=== PATIENT | female | born 1930 | race Caucasian/White ===

== ENCOUNTER 2017-03-02 00:36 | Inpatient (IN) | payer MEDICARE ==
[~2017-03-02] VITALS: Ht 157.5 cm; Wt 78.3 kg
[~2017-03-02 00:36] MED LIST: ALLOPURINOL100 MG PO; ASPIRIN325 MG PO; CLARITIN10 MG PO; DAILY MULTIPLE1 EACH PO; DOCUSATE SODIU100 MG PO; FAMOTIDINE20 MG PO; GABAPENTIN600 MG PO; GLIPIZIDE10 MG PO; GLUCOPHAGE1000 MG PO; HAIR, SKIN & N1 EAC2 PO; LISINOPRIL30 MG PO; MEDROL4 MG PO; METHOCARBAMOL750 MG PO; METOPROLOL TART50 MG PO; MIRAPEX0.125 MG PO; NORCO 10-325 T1 EACH PO; SIMVASTATIN20 MG PO; SUPER CALCIUM600 MG PO; TIMOPTIC 0.5%1 EACH OU; VITAMIN D32000 UNI1 PO
[2017-03-02] MEDS ORDERED: ASPIRIN325 MG PO (01:02)
[2017-03-02] MEDS ORDERED: AMOXICILLIN500 MG PO (05:14)
[2017-03-02] MEDS ORDERED: ZITHROMAX250 MG PO (06:28)
--- NOTE | 2017-03-02 06:39 | NUR ---
FLUIDS DISCONTINUED PER DR LAU
--- NOTE | 2017-03-02 07:53 | NUR ---
RECIEVED REPORT FROM RUDY NICHOLSON. PT AWAKE AND ASSISTED TO RESTROOM. PT ABLE TO AMBULATE WITH FWW AND SBA. MG INFUSING. IVF DC'D BUT STILL HANGING FOR FLUSHING OF LINE. PT HR INCREASED TO 130'S WHILE UP. DENIES FURTHER CONCERNS.
--- NOTE | 2017-03-02 09:45 | NUR ---
PT REPORTED NAUSEA AND THEN THREW UP. THINKS IT IS FROM TAKING ASPRIN ON EMPTY STOMACH. GAVE HER CRACKERS AND CALLED DR LAU FOR ZOFRAN ORDER. PT STATED SHE WILL TRY THE CRACKERS BEFORE TAKING THE MED.
--- NOTE | 2017-03-02 10:23 | NUR ---
PT STILL NAUSEOUS AFTER TRYING TO EAT BREAKFAST. ADMINISTERED ZOFRAN IV. IN ROOM NOW. REMOVED FOOD TRAY. WILL CHECK ON HER AGAIN SHORTLY.
--- NOTE | 2017-03-02 10:33 | NUR ---
PT IS SITTING UP ON THE SIDE OF BED WITH CALL LIGHT IN REACH. PT IS VERY NAUSEOUS AND WAS GIVEN AN EMESIS BAG. PT THREW UP ALL THE BREAKFAST SHE ATE. NURSE AWARE. PT DID NOT NEED ANYHITNG ELSE AT THE MOMENT
--- NOTE | 2017-03-02 12:18 | NUR ---
PT LAYING BED TRYING TO RELIEVE NAUSEA AND GET SOME REST BEFORE LUNCH. BT ARE ACTIVE AND ABDOMIN IS SOFT.
--- NOTE | 2017-03-02 14:36 | NUR ---
PT IN BED TALKING WITH FAMILY. STATES SHE IS STILL NAUSEOUS AND DOESN'T THINK SHE COULD KEEP PILLS DOWN RIGHT NOW. ADMINISTERED ZOFRAN AND IV LASIX. TALKED TO DR LAU REGARDING INABILITY TO SWALLOW PILLS. WILL ORDER PHENEGREN.
--- NOTE | 2017-03-02 16:45 | NUR ---
PT CONTINUES TO THROW UP EVEN AFTER ZOFRAN, PHENEGREN AND IV MEDICATIONS ALL DAY. WILL MOVE TO UNIT FOR IV CARDIZEM DRIP SHE IS UNABLE TO KEEP ANYTHING DOWN. PT CONCURS. GIVEN GI COCKTAIL.
--- NOTE | 2017-03-02 17:23 | NUR ---
CARDIZEM DRIP STARTED AT 5MG/HR AT THIS TIME, HEART RATE IRREGULAR AT THIS TIME, VARIES FROM THE 88 TO 100'S TO ONE TEEN'S.
--- NOTE | 2017-03-02 17:32 | NUR ---
RECEIVED PT FROM THE M/S UNIT DUE TO S-FIB INCREASED HEAART RATE AND N/V/D THIS AFTERNOON. PT DOES NOT UNDERSTAND THE IMPORTANCE OF STANING IN BED AND LETTING STAFF GIVE HER MEDICATIONS TO GET HER HEART RATE DOWN. ALL SHE WAS DOING WAS YELLING AT HER TO GO TO THE OTHER ROOM AND BRING HER WIPES THAT SHE USES WHEN SHE GOES TO THE BATHROOM. PT APPEARS TO BE VERY UNCOMFORTABLE AT THIS TIME, DOES FEEL A LITTLE BETTER WITH THE IV PUSH OF CARDIZEM 10MG. BUT HEART RATE STILL VERY IRREGULARE ANYWEAR FROM 88 TO 113.
--- NOTE | 2017-03-02 18:11 | NUR ---
PT CONTIOUES TO C/O ABD PAIN, AND REQUESTED HER MEDICATION FOR RESTLESS LEG, SO MEDICATION WAS GIVEN WITH SIPS OF WATER. PT DOES NOT WANT TO EAT DINNER AT THIS TIME, IN GERERAL SHE APPEARS UNCOMFORTABLE. ROLLS FROM SIDE TO SIDE, BUT IS ABLE TO MOVED HERSELF ABOUT IN THE BED. HEART RATE REMAINS IRREGULAR AT THIS TIME AND CARDIZEM DRIP REMAINS AT 5MG/HR.
--- NOTE | 2017-03-02 18:26 | NUR ---
TALKED WITH DR LAU AND IT IS OKAY TO GIVE INSULIN DOSE AT THIS TIME. ASLO TO INCREASE CARDIZEM DRIP TO 10MG/HR.
--- NOTE | 2017-03-02 18:35 | NUR ---
PT PLACED ON BED TRISTAN AT THIS TIME.
--- NOTE | 2017-03-02 18:37 | NUR ---
IT WAS NOTED THAT UNDER PT ABD FOLD IT IS TO HAVE A RASH/ODOR/WET/MOIST. WHEN ASKING PT ABOUT THIS SHE SAID AT TIMES "I USE A POWER ON IT". PT PLCED ON BED TRISTAN.
--- NOTE | 2017-03-02 18:51 | NUR ---
PT UNABLE TO VOID ON BEDPAN, UP TO BEDSIDE COMMODE THEN STARTED TO VOMET HAD 200MLS OF WHITE IN COLOR. BUT WAS ABLE TO VOID
--- NOTE | 2017-03-02 21:03 | EKG ---
[facility] [address] [place] [address] Signed Atrial fibrillation with rapid ventricular response Nonspecific ST abnormality Abnormal ECG When compared with ECG of 30-OCT-2016 15:32, T wave inversion more evident in Inferior leads Confirmed by NIKKI LAU MD ([id number]) on 03/02/2017 9:03:29 PM Electronically Signed By: NIKKI LAU MD 03/02/17 2103 PATIENT NAME: JACK PATEL Electrocardiogram DATE OF : [birth year] PHYSICIAN: NIKKI LAU MD REPORT #: [id number] REPORT IS CONFIDENTIAL AND NOT TO BE RELEASED WITHOUT AUTHORIZATION
--- NOTE | 2017-03-02 21:25 | NUR ---
HS MEDS GIVEN/ PT DENIES NAUSEA BUT EXPRESSES HOPE THAT SHE WILL KEEP THEM DOWN. PANNIS AREA IS PINK, CLEANSED AND NYSTATIN APPLIED.
--- NOTE | 2017-03-02 23:28 | NUR ---
HAS BEEN SLEEPING. HR HAS BEEN GRADUALLY INC TO 115-120. RR 28-34. T99.8. UP TO BSC TO VOID, IS WEAK AND DID FEE A LITTLE DIZZY WHITH GETTING UP HR TO 130 WITH EXERTION, NO SOB. PT DENIES SOB EVEN WITH TACHYPNEA.AFFIRMS JUST DOESN'T FEEL WELL. CARDIZEM INC TO 15MG/HR.
--- NOTE | 2017-03-02 23:35 | NUR ---
PT GIVEN 500MG TYLENOL PO FOR TEMP. PT HAD RUNNY NOSE WHILE UP, MUCOUS CLEAR.
--- NOTE | 2017-03-03 01:30 | NUR ---
AWAKE BRIEFLY . TURNS FREQ. NO CHANGE
--- NOTE | 2017-03-03 05:19 | NUR ---
AWAKENED FOR VS. STATE IS SORE ALL OVER. GIVEN ZOFRAN 4MG IV TO PREVENT NAUSEA THEN GIVEN 1 NORCO PO WITH JELLO.
--- NOTE | 2017-03-03 05:32 | NUR ---
PT HAD EMESIS AFTER PART OF JELLO, DID NOT SEE NORCO, EMESIS IS CLEAR AND WITH MUCOUS.
--- NOTE | 2017-03-03 06:18 | NUR ---
PT NOT REALLY FEELING BETTER. CAN FEEL HEART BEATING. HR LOW 100'S.
--- NOTE | 2017-03-03 09:03 | NUR ---
PT LABS RESULTS BACK DR LAU NOTIFIED AND BLOOD CULTURES OBTAINED AND LACTIC ACID OBTAINED AT 0950. NEW IV SITE PLACED AFTER 5 TRIES. LAB PRESENT ALSO AT THIS TIME. DR LAU EXAMINED PT ALSO AT THIS TIME. NEW ORDERS RECEIVED.
--- NOTE | 2017-03-03 10:00 | NUR ---
CARDIZEM DRIP DECREASED TO 10MG/HR AT THIS TIME, DUE TO HEART RATE IN THE 70'S. PT APPEARS TO BE RESTING COMFORTABLE AND IS AT THE BEDSIDE.
--- NOTE | 2017-03-03 10:02 | NUR ---
PT TALKING ON PHONE WITH FAMILY AND PT JUST CAME IN THIS AM.
--- NOTE | 2017-03-03 11:00 | NUR ---
CARDIZEM DRIP DECREASED TO 5MG HOUR AT THIS TIME JEART RATE REMAINS IN THE 70'S TO 80'S AT TIMES.
--- NOTE | 2017-03-03 11:27 | NUR ---
PT TO CT AT THIS TIME VIA BED. NO CONTRAST GIVEN DUE TO PT UNABLE TO KEEP LIDUIRS OR FOOD DOWN THIS AM.
--- NOTE | 2017-03-03 11:55 | NUR ---
PT RETURNED FROM CT VIA BED AT THIS TIME. CALL LIGHT WITHIN REACH BED IN LOW POSITION AND SIDE RAILS UP X 4
--- NOTE | 2017-03-03 12:45 | NUR ---
PT IS GOING TO TRY TO SIP ON SOME COLD SUGAR FREE TEA AT THIS TIME, PT HAS BEEN SLEEPING SINCE SHE RETURNED FROM CT. RAISED THE HEAD OF HER BED TO TAKE PO AT THIS TIME. REMAINS AT THE BEDSIDE AT THIS TIME.
--- NOTE | 2017-03-03 13:26 | NUR ---
DR LAU CALLED AND REPORTED THAT THE CT IS NEGATIVE SO THEREFORE HE ORDER US OF PT GALLBLADDER ATT HIS TIME. CT CALLED IN AT THIS TIME.
--- NOTE | 2017-03-03 13:30 | NUR ---
UP TO BR TO ATTEMPT BM. WITH AMBULATION OXYGEN SOURCE IS NRBM AT 15 L. PATIENT UNBLE TO HAVE BM. DID VOID TO URINAL 320 ML. UPON RETURN TO BED PATIENT IS VERY SHORT OF BREATH. SAT IS 79%.
--- NOTE | 2017-03-03 13:47 | NUR ---
CARDIZEM DRIP REMAINS AT 5MG/HR AND HEART RATE REMAIN IN THE 80'S TO 90'S AT THIS TIME. PT CONTIOUES TO SLEEP EVEN WHEN STAFF IS TALKING WITH HER . HOB ELEVATED IV FLUIDS CONTIOUE TO INFUSE AT THIS TIME.
--- NOTE | 2017-03-03 13:52 | NUR ---
US TECH HER AT THIS TIME.
--- NOTE | 2017-03-03 15:25 | NUR ---
US SENT TO LAB AT THIS TIME. OBTAINED VIA MINI CATH. IT APPEARED TO YELLOW IN COLOR AND CLEAR IN APPEARANCE.
--- NOTE | 2017-03-03 16:17 | NUR ---
WOKE PT UP AFTER TALKING WITH DR LAU. DR LAU WOULD LIKE TO FLUID CHANGE PT WITH PO INTAKE AT THIS TIME AND THEN TRY TO GET PO POTASSIUM TAKEN. BLADDER SCAN PT FOR 341MLS AT THIS TIME AND PT DENIES NEED TO VOID AT THIS TIME. GAVE PT CHICKEN BROTH AND HOT TEA AT THIS TIME.
--- NOTE | 2017-03-03 16:57 | NUR ---
PT SO FAR BEEN ABLE TO PO LIQUIDS DOWN. PT UP TO BEDSIDE COMMODE VOIDED 300MLS DARK PHIL IN COLOR URINE. PT BACK TO BED. AT TIMES SHE WOULD KEEP HER EYES CLOSED AND WAS NOT LISTENING TO STAFF ABOUT MANGING HER TUBES AND CORDS. DR LAU IN THE PTS ROOM ALSO AT THIS TIME.
--- NOTE | 2017-03-03 17:07 | NUR ---
INCREASED CARDIZEM DRIP TO 12.5MG/HR AT THIS TIME. DR LAU REMAINS IN UNIT AND CURRENTLY WRITTING NEW ORDERS FOR PT.
--- NOTE | 2017-03-03 17:44 | NUR ---
PT GIVEN 5MG REGLAN BEFORE MEDS AND TONIGHTS MEAL AT THIS TIME. STARTED 500ML LR BOLUS ALSO AT THIS TIME. PT CONTIOUES TO BE IN BED WITH EYES CLOSED. NOT VERY FORTH COMING WITH HOW SHE IS FEEL THIS AFTERNOON. DINNER ORDER FOR PT.
--- NOTE | 2017-03-03 18:45 | NUR ---
PT ATE SOME OF HER DINNER TONIGHT WITHOUT HAVEING ANY N/V. SHE DID NOT LIKE HER TEA TONIGHT "TOO STRONG". LR BOLUS COMPLETED AND THEN LR AT 75MLS/HR STARTED AT THIS TIME.
--- NOTE | 2017-03-03 20:54 | NUR ---
HAS BEEN SLEEPING. AWAKENED FOR ASSESSMENT AND VS. DENIES NAUSEA OR ABD PAIN. STILL FEELS VERY TIRED. AFEBRILE AT THIS TIME.
--- NOTE | 2017-03-03 23:25 | NUR ---
PT SHAKING SIDE RAIL, AFFIRMED NEEDED TO VOID. AT FIRST PT WAS DIFFICULT TO UNDERSTAND, SPEECH CLEARER THE LONGER SHE WAS AWAKE. TRIED TO GET PT TO BSC BUT UNABLE TO EVEN SIT UP AT BEDSIDE. ON BED TRISTAN, UNABLE TO VOID. NOW ASSISTED TO BSC AND VOIDED 100ML CONCENTRATED URINE. BACK TO BED. STILL HAS DIFFICULTY COORDINATING MOVEMENT. BLADDER SCANNED FOR 741ML. DR LAU CALLED AND ORDER FOR REAL CATH RECIEVED.
--- NOTE | 2017-03-04 00:22 | NUR ---
LAB IN TO DRAW BLOOD CULTURES
--- NOTE | 2017-03-04 01:38 | NUR ---
PT'S BLOOD PRESSURE NOTED TO BE 81/42, 77/47, AND 80/42. PT AWAKE AND CONVERSIVE STILL. PATIENT'S CARDIZEM GTT INFUSING AT 7.5 MG/HR AT THIS TIME AND TURNED DOWN TO 2.5 MG/HR. PT HELPED TO BECOME MORE COMFORTABLE IN THE BED. CONTINUE TO MONITOR CLOSELY.
--- NOTE | 2017-03-04 01:43 | NUR ---
LE 0112 CARDIZEM GTT DECREASED TO 7.5MG/HR. IS MORE AWAKE THAN EARLIER.
--- NOTE | 2017-03-04 01:58 | NUR ---
OFF CARDIZEM. U/O 5ML THIS HR, DR LAU AWARE. BOLUS 250ML LR STARTED. PT IS ALERT AND WATCHING TV.
--- NOTE | 2017-03-04 03:27 | NUR ---
DR JUDI SHETTY RE URINE OUTPUT AND PT CONDITION. WILL CONT TO WATCH.
--- NOTE | 2017-03-04 04:27 | NUR ---
AWAKENED FOR VS, IS MORE ALERT AND INTERACTIVE THAN EARLIER. CONT TO HAVE POOR URINE OUTPUT.
--- NOTE | 2017-03-04 06:26 | NUR ---
SLEEPING SOUNDLY AT THIS TIME. URINE OUTPUT SL BETTER.
--- NOTE | 2017-03-04 10:15 | NUR ---
PT ATE FAIR THIS AM, THEN WENT BACK TO SLEEP. PT GIVEN COMPLETE BED BATH AND LINE CHANGE THIS AM. PT THEN AMBULATED TO THE CHAIR WITH HER WALKER, SHE DOES NOT FOLLOW STAFF DIRECTIONS WELL, BUT IS COOPERATIVE WITH HOSPITAL ROUTINE.
--- NOTE | 2017-03-04 11:12 | NUR ---
CALL LIGHT ON PATIENT WOULD LIKE TO GO BACK TO BED. PATIENT BACK TO BED WITH NO C/O OR FURTHER NEEDS AT THIS TIME. RN AWARE
--- NOTE | 2017-03-04 12:44 | NUR ---
ORDER PT LUNCH AT THIS TIME, PT ALSO WAS GIVEN PO CARDIZEM AT 11:30 TO HELP CONTROL HEART RATE.HEART RATE REMAINS IN TO 100'S TO TEENS, BP SOFT AT THIS TIME. SITTING UP IN BED AT THIS TIME. IS AT BEDSIDE.
--- NOTE | 2017-03-04 13:28 | NUR ---
PT FAMILY AT THE BED TALKING WITH PT WHILE SHE TRIES TO EAT HER LUNCH. REMAINS OFF THE CARDIZEM DRIP. PT REMAINS IN A-FIB
--- NOTE | 2017-03-04 13:31 | NUR ---
PT WAS RESTING, HER WAS ON COUCH READING THE BIBLE. SHE WELCOMED ME IN. SHE SAID SHE WAS FEELING BETTER, BUT DID SO WITH VERY CALM VOICE, AND THEN WOULD DROP OFF. SHE MENTIONED THAT HER FREIGHT LOADING SUPERVISOR HAD CALLED. I AM TO KEEP HIM UPDATED FOR HER. HAD PRAYER, WILL CONTINUE TO FOLLOW NEEDED
--- NOTE | 2017-03-04 14:41 | NUR ---
PT APPEARS TO BE CONFUSED THIS AFTERNOON, IS FOLLOWING SOME DIRECTIONS, NEURO CHECK COMPLETED LEVERMAN GOOD AND EQUAL, STRENGHT EQUAL, ABLE TO FOLLOW DIRECTIONS.
--- NOTE | 2017-03-04 15:26 | NUR ---
UA SENT AT THIS TIME, 55MLS OF PHIL IN COLOR URINE SENT AT THIS TIME. THEN AN ADDITIONAL 15MLS OF URINE IN THE CATHETER BAG
--- NOTE | 2017-03-04 16:29 | NUR ---
pt having increased confuseion, temp up medicated with tylenol 500mg po at this time, warm cup of tea given at this time also. family remain at bedside.
--- NOTE | 2017-03-04 18:12 | NUR ---
FLU SWAB OBTAIN, FEVER IS DOWN AND PT IS SITTING UP IN THE CHAIR WATCHING TV WITH FAMILY AND IS NOT CONFUSED AT THIS TIME.
--- NOTE | 2017-03-04 20:12 | NUR ---
PATIENT LYING IN BED UPON INITIAL ASSESSMENT AND IS ALERT, ORIENTED AND PLEASANT. TEMP AT THIS TIME IS 98.3. PT STATES SHE HAS PNEUMONIA. PT WATCHING TV. ASSESSMENT COMPLETE. MONITORING URINE OUTPUT HOURLY. IVF CONTINUE AT 200 ML/HR AT THIS TIME. CONTINUE CHAVA ONITOR.
--- NOTE | 2017-03-04 21:48 | NUR ---
PATIENT SLEEPING AND APPEARS IN NAD. LAST BP 126/60. PT'S URINE OUTPUT HAS PICKED UP TONIGHT AND WE CONTINUE TO MONITOR IT HOURLY. HEART RATE ALSO BETTER CONTROLLED AND CURRENT HR IS 80s, AFIB.
--- NOTE | 2017-03-04 23:26 | NUR ---
PATIENT GIVEN 30 MG PO CARDIZEM AT THIS TIEM. HEART RATE HAS BEEN NOTED TO BE TRENDING BACK UP TO RANGE BETWEEN 100-110, AFIB. PT HAD A MELENA STOOL IN THE BED EARLIER WELL. [facility] POSTIVE FOR BLOOD. DR. LAU NOTIFIED AND ORDER REC'D TO HOLD HER ASPIRIN, AND TYPE AND CROSS HER FOR 2 UNITS OF PRBCs TO BE ON HOLD. CONTINUE TO MONITOR. URINE OUTPUT HAS REMAINED GOOD TONIGHT.
--- NOTE | 2017-03-05 03:58 | NUR ---
PATIENT'S HEART RATE NOTED TO BE INCREASING TO THE MID 120s AND SUSTAINING. PT CHECKED ON AND SHE STATES HER ABDOMEN IS HURTING HER AND SHE IS NOTED TO PASS FOUL SMELLING FLATULENCE. PT UP TO COMMODE AND HAS ANOTHER MELENA STOOL. PT ALSO HAD AN INCONTINENCE IN HER ATTENDS WHILE SHE WAS SLEEPING. CONTINUE TO MONITOR.
--- NOTE | 2017-03-05 08:10 | NUR ---
ASSESSMENT COMPLETED, PT C/O OF NAUSEA MEDICATED WITH ZOFRAN 4MG IV. PT STATES HAVING ABD DISCOMFORT "5/10" WITH PALPATION. URINE OUTPUT 60 MLS THIS HOUR. REAL CATH DRAINING CLEAR YELLOW URINE.
--- NOTE | 2017-03-05 09:19 | NUR ---
ATTENDS CHANGED X3, PT INCONT SMALL AMOUNTS OF DARK RED/BROWN LIQ STOOL. DR. LAU NOTIFIED OF NAUSEA/VOMITING LIGHT GREEN FLUID. NEW ORDERS RECEIVED. IVF NOW DECREASED TO 100 MLS/HR PER ORDER.
--- NOTE | 2017-03-05 10:09 | NUR ---
DR. LAU IN TO ASSESS PT.
--- NOTE | 2017-03-05 11:24 | NUR ---
Patient talking on phone with a friend who called to pray with her.
--- NOTE | 2017-03-05 12:22 | NUR ---
PT CONTINUES TO HAVE NAUSEA/VOMITING. MEDICATED WITH PHENERGAN 12.5 MG IV.
--- NOTE | 2017-03-05 13:58 | NUR ---
PT SITTING ON EDGE OF BED, ASKED "WHEN AM I GOING TO SURGERY?" PT STOOD AT BED SIDE WITH ONE PERSON ASSIST AND AMBULATED TO TOP OF BED. RETURNED TO BED WITH HOB ELEVATED, BED ALARM ON. PT RESTING, IN ROOM.
--- NOTE | 2017-03-05 17:38 | NUR ---
500 MLS BOLUS COMPLETED PER DR. LAU ORDER. PT RESTING ON LEFT SIDE, EYES CLOSED.
--- NOTE | 2017-03-05 18:07 | NUR ---
DR. QUEVEDO IN TO ASSESS PT AND TALK TO HER AND HER ABOUT PROCEDURE. LAB HERE FOR LAB DRAW.
--- NOTE | 2017-03-05 18:51 | NUR ---
TO ENDO ROOM VIA STRETCHER. JOVI CALLED PER PT REQUEST AND HE STATED HE WILL BE HERE TO SEE PT SOON.
--- NOTE | 2017-03-05 19:20 | NUR ---
03/05/171919 Ella Mcallister 190-PATIENT ARRIVED BACK TO ROOM 130 CCU PACU. 10L MASK O2 SAT 98% DILTIAZEM GTT AT 10MG/HR SR HR 90'S. PATIENT DROWSY AROUSES TO VERBAL STIMULI. PATIENT REPOSITIONED BACK TO BED. REAL CATHETER IN PLACE. AT BEDSIDE. 1917-DR. QUEVEDO AT BEDSIDE TALKING WITH PATIENT AND
--- NOTE | 2017-03-05 19:57 | NUR ---
REPORT RECIEVED FROM NAIL FEEDERRUDY COOLEY. PT AWAKE AND DENIES NAUSEA AND PAIN, IS SLEEPY, SIPS OF JUICE GIVEN. PT ALERT AND ORIENTED, SIDE RAILS UP, AT BEDSIDE.
--- NOTE | 2017-03-05 21:20 | NUR ---
IN TO DO ASSESSMENT AND HS MEDS, PT DENIES NAUSEA/PAIN/SOB. ATTENDS HAVE DARK STOOL, JESUS ALBERTO CARE DONE, NYSTATIN POWDER APPLIED.
--- NOTE | 2017-03-05 23:15 | NUR ---
ASSESSMENT DONE, PT ASSISTED WITH REPOSITIONING. NO C/O.
--- NOTE | 2017-03-06 02:55 | NUR ---
CARDIZEM DRIP TURNED DOWN TO 2.5MG/HR, HELPED TO REPOSTION AND LOPRESSOR GIVEN.
--- NOTE | 2017-03-06 06:23 | NUR ---
PT AWAKE IN BED, WATCHING TV. STATES SHE IS WANTING TO GO HOME SHE DOES NOT LIKE THE FOOD HERE. DENIES NAUSEA/SOB/PAIN. ASSISTED TO REPOSITION.
--- NOTE | 2017-03-06 08:42 | NUR ---
PT UP TO JANA CHAIR WITH STOCK SORTER, PT EATING CLEAR LIQ DIET. ASSESSMENT COMPLETED AND PT REMAINS IN JANA CHAIR. DR. QUEVEDO IN TO ASSESS PT.
--- NOTE | 2017-03-06 09:23 | NUR ---
DR. LAU IN TO ASSESS PT. DR. LAU TALKED WITH GRANDSON OF PT ALSO.
--- NOTE | 2017-03-06 11:28 | NUR ---
PT SLEEPING ON RIGHT SIDE - FAMILY IN ROOM.
--- NOTE | 2017-03-06 11:45 | NUR ---
PT RESTING IN BED, INCONT OF LIQ DARK BROWN STOOL - BED BATH GIVEN,. ADDIE GARCIA DC'D - PT DEMETRI WELL, PULL-UP UNDERGARMENT IN PLACE AND PT UP TO JANA CHAIR WITH ASSIST. ASSESSMENT COMPLETED, DENIES C/O AT THIS TIME. FAMILY BACK IN ROOM. PT STATES SHE WILL TRY TO EAT A LITTLE SOUP FOR LUNCH.
--- NOTE | 2017-03-06 12:44 | NUR ---
PT SLEEPING- AND GRANDSON JOANN PRESENT. VISITED WITH BOTH BRIEFLY. DIDNOT WANT TO WAKE PT. PT HAD SCOPE, DIDNOT REVEAL ANYTHING. THEY FEEL SHE IS IMPROVING. EXTENDED A BLESSING, WILL CONTINUE TO FOLLOW
--- NOTE | 2017-03-06 16:17 | NUR ---
ASSESSMENT COMPLETED, FAMILY IN ROOM, PT DRINKING MILKSHAKE THAT FAMILY BROUGHT FOR PT. NO C/O AT THIS TIME.
--- NOTE | 2017-03-06 18:08 | NUR ---
PT UP TO JANA FERGUSON, WATCHING TV. PM MEDS GIVEN, PT STATES SHE WILL TRY TO EAT SOME SOUP TONIGHT.
--- NOTE | 2017-03-06 19:30 | NUR ---
IN TO DO ORTHOSTATIC VITALS, PT ABLE TO TOLERATE STANDING FOR ONE MINUTE, BUT AT THREE MINUTE JESSICA PT STATES SHE CANT STAND ANY LONGER AND SITS BACK DOWN ON BED, SO NOT ABLE TO OBTAIN LAST STANDING BP. DR LAU AWARE, ORDER GIVEN FOR 500 ML BOLUS, STARTED. DR LAU ALSO INFORMED OF 100.6 ORAL TEMP, ORDER GIVEN FOR UA AND PCXR.
--- NOTE | 2017-03-06 20:00 | NUR ---
ASSESSMENT COMPLETED, PT DENIES PAIN, NAUSEA OR SOB ALTHOUGH RESP RATE IS A BIT HIGH. IS ON 1L/O2/NC AND SPO2 92%. LUNGS CLEAR AT THIS TIME. PT WAS INC GREENISH LIQUID STOOL, JESUS ALBERTO CARE DONE, NYSTATIN APPLIED AND STRAIGHT CATH DONE TO OBTAIN UA. PT DENIES URGE TO VOID AT THIS TIME. REPOSITIONED UP IN BED, DURING STRAIGHT CATH PROCEDURE, PTS DAUGHTER BRI COMES IN FROM [place] AND IS CONCERNED REGARDING PT'S CONDITION. QUESIONS ANSWERED, BRI IS PLANNING ON STAYING THE NIGHT. PT IS RESTING IN BED, RESP UNLABORED BUT RATE UP TO 32 AFTER ACTIVITY. RESTING HR 100'S, HS MEDS GIVEN.
--- NOTE | 2017-03-06 22:15 | NUR ---
PT STILL HAS NOT HAD URGE TO VOID, BLADDER SCAN DONE SHOWS 70ML. DR LAU CALLED AND UPDATED ON PT STATUS, WILL CONTINUE TO MONITOR URINE. PT HAS BEEN RESTING WITH EYES CLOSED, RESP EVEN AND UNLABORED BUT SHALLOW AND FAST WITH RR 30-34. O2 TURNED UP FROM 1L TO 2L SATURATIONS WERE 91%, NOW UP TO 95%.
--- NOTE | 2017-03-07 00:20 | NUR ---
PT CALLS OUT, WAS WONDERING IF HER DAUGHTER WAS IN THE ROOM. PT WAS FOUND WITH SOME GREEN EMESIS AROUND HER PILLOW. ASKED IF SHE VOMITTED SHE STATES "SORT OF". PT ASSISTED WITH CLEANING HER FACE AND MOUTH, STATES SHE IS A LITTLE NAUSEATED. 4MG IV ZOFRAN GIVEN. BLADDER SCAN DONE SHOWS 124ML. RESTING HR HAS INCREASED OVER THE LAST HOUR OR SO, NOW IS 120-130, WILL GIVE PO CARDIZEM SOON. RR STILL ELEVATED, 28-34. LUNGS WITH A FEW COARSE SOUNDS HEARD ON LEFT, OXYGEN IS AT 2L/NC WITH SPO2 95%. PT REPOSITIONED AND BED ALARM ON, SIDE RAILS UP. DAUGHTER IS SLEEPING IN ROOM.
--- NOTE | 2017-03-07 01:47 | NUR ---
PO CARDIZEM GIVEN, PT AWAKENS EASILY, STATES NAUSEA IS GONE. HR AND RESP RATE ARE DOWN AT THIS TIME, HR 109 AND RR 24 SPO2 99%.
--- NOTE | 2017-03-07 02:30 | NUR ---
PT FOUND WITH MORE FRESH GREEN LIQUID ON GOWN AND AROUND PILLOW, ASKED IF SHE THREW UP SHE STATES "I DON'T THINK SO" , DOES STATE SHE IS STILL NAUSEATED, ABDOMEN IS MORE DISTENDED AND TENDER. PT DOES NOT COMPLAIN OF PAIN BUT HAS AN UNCOMFORTABLE LOOK ON HER FACE. RR IS IN THE 30'S SHALLOW.WILL GIVE REGLAN.
--- NOTE | 2017-03-07 03:15 | NUR ---
BLADDER SCAN SHOWED 150ML IN BLADDER. DR LAU CALLED AND UPDATED REGARDING ABOMINAL DISTENTION, EMESIS, LOW URINE OUTPUT AND INCREASED RR. ORDERS GIVEN FOR ABD XR, LR BOLUS AND TO PLACE A CATHETER.
--- NOTE | 2017-03-07 04:30 | NUR ---
PT TO XR WITH XR TECH AND RN FOR ABDOMINAL XRAY. SOB AND WORN OUT WITH THE ACTIVITY OF STANDING FOR XRAY AND TRANSFERRING. BACK TO ROOM, REAL CATHETER PLACED WITH RETURN OF 350ML CLEAR DARK YELLOW URINE. PT ALSO INC SMALL LIQUID GREEN STOOL, JESUS ALBERTO CARE DONE, BARRIER CREAM APPLIED. PT IS NOT FEELING WELL, NAUSEATED, ABDOMINAL PAIN AND DISTENTION.
--- NOTE | 2017-03-07 05:17 | NUR ---
LAB IN TO DRAW BLOOD.
--- NOTE | 2017-03-07 05:17 | NUR ---
DAUGHTER BRI AWAKE NOW, PROCEDURES EXPLAINED TO HER AND QUESTIONS ANSWERED.
--- NOTE | 2017-03-07 05:30 | NUR ---
DR LAU CALLED AND UPDATED, NO ORDERS AT THIS TIME.
--- NOTE | 2017-03-07 06:17 | NUR ---
NGT PLACED, PLACEMENT CHECKED WITH CXR.
--- NOTE | 2017-03-07 08:00 | NUR ---
FAMILY AT THE BEDSIDE, PT IS AWAKE AND ALERT AT THIS TIME, NG IS DRAING GREEN IN COLOR DRAINAGE. APPEARS TO BE COMFORTABLE AT THIS TIME.
--- NOTE | 2017-03-07 09:00 | NUR ---
AM MEDS GIVEN IV, FAMILY REMAINS AT BEDSIDE
--- NOTE | 2017-03-07 10:45 | NUR ---
NG DRAINAGE INCREASED OUTPUT NEW CANISTER PLACED. DR QUEVEDO INTO SEE PT.
--- NOTE | 2017-03-07 11:49 | NUR ---
PER DR QUEVEDO NG TUBE RETAPED AT THIS TIME.
--- NOTE | 2017-03-07 11:56 | NUR ---
PT INTO SEE PT AT THIS TIME, PHYSICAL THERAPY WAS WORKING WITH PT.
--- NOTE | 2017-03-07 14:00 | NUR ---
I & O'S COMPLETED AND DR LAU UP DATED REGARDING I & O'S. PT TURNED TO LEFT SIDE AT THIS TIME, ONLY C/O PAIN WHEN ON HER BACK "I HAVE METAL IN MY BACK" PT REMAINS NPO AT THIS TIME, AND APPEARS TO BE COMFORTABLE WHEN ONHER SIDE.
--- NOTE | 2017-03-07 14:06 | NUR ---
PT ASLEEP. RUDY HADLEY REQUESTED I NOT WAKE HER. PT HAS HAD LOTS OF COMPANY. DEALING WITH NG TUBE ASSISTING WITH BOWEL OBSTRUCTION. FAMILY REQUESTED TO LEAVE, AND LET PT REST. I WILL CONTINUE TO FOLLOW, GOD BLESS
--- NOTE | 2017-03-07 15:05 | NUR ---
pt is in the room at this time, explained what was happening and how pt progress is going.
--- NOTE | 2017-03-07 16:05 | NUR ---
PT HAS BEEN ASLEEP, AWAKENS WHEN SPOKEN TOO, REMAINS AT THE BEDSIDE AT THIS TIME. AGREE WITH [facility] [employer] COORDINATOR FROM [facility] CHARTING KATE OTERO
--- NOTE | 2017-03-07 16:55 | NUR ---
PT FAMILY IS BACK AT THIS TIME, IN PATIENTS PERSONAL SPACE WHILE SHE IS IN BED.
--- NOTE | 2017-03-07 17:19 | NUR ---
Pt's family in room, levoquin started.
--- NOTE | 2017-03-07 17:50 | NUR ---
PT TURNED TO RIGHT SIDE AT THIS TIME, MEDICATED FOR PAIN
--- NOTE | 2017-03-07 18:57 | NUR ---
AGREE WITH ALL OF THE STUDENT NURSE CHARTING, FAMILY REMAINS IN THE ROOM, PT APPEARS TO BE COMFORTABLE.
--- NOTE | 2017-03-07 19:48 | NUR ---
IN TO CHECK ON PT, FAMILY AT BEDSIDE, PT RESTING WITH EYES CLOSED AND LOOKS COMFORTABLE, RR 30 EVEN AND UNLABORED WITH 2L/NC/O2, HR 95-105 WITH CARDIZEM DRIP RUNNING AT 5MG/HR. IVF INFUSING AT 200ML/HR. PT DENIES PAIN/NAUSEA AT THIS TIME.
--- NOTE | 2017-03-07 20:00 | NUR ---
ASSESSMENT DONE/HS MEDS GIVEN. PT REPOSITIONED IN BED. ABDOMEN LESS DISTENDED THAN IT WAS LAST NIGHT, LUNGS SOUNDS WITH COARSE SOUNDS HEARD ON LEFT SIDE AND RIGHT SIDE CLEAR. RESP EVEN AND UNLABORED, SHALLOW WITH RATE OF 30.
--- NOTE | 2017-03-07 20:30 | NUR ---
DR LAU CALLED REGARDING LOW URINE OUTPUTS. 500ML LR BOLUS STARTED.
--- NOTE | 2017-03-07 21:16 | NUR ---
URINE OUTPUT DOWN TO 12ML LAST HOUR, 500ML BOLUS JUST COMPLETED, WILL WATCH FOR THE NEXT HOUR.
--- NOTE | 2017-03-08 00:20 | NUR ---
IN TO REPOSITION PT/DO ASSESSMENT. PT DENIES NAUSEA/PAIN. NGT CONTINUES TO DRAIN DARK BROWN/BLACK FLUID. RR 27, HR 90'S AFIB, CARDIZEM DRIP CONTINUES TO INFUSE AT 5MG/HR.
--- NOTE | 2017-03-08 00:42 | NUR ---
PT HAS AN UNCOMFORTABLE LOOK ON HER FACE. ASKED AGAIN IF SHE IS IN PAIN OR NAUSEATED "I DON'T KNOW" 2MG IV MORPHINE GIVEN FOR COMFORT.
--- NOTE | 2017-03-08 01:45 | NUR ---
PT RESTING WITH EYES CLOSED, RESP EVEN AND UNLABORED, RR 24, HR 97.
--- NOTE | 2017-03-08 03:30 | NUR ---
IN FOR ASSESSMENT, PT ASKS FOR PAIN MEDICINE, 2MG IV MORPHINE GIVEN. NGT CONTINUES TO DRAIN BLACK/BROWN LIQUID.
--- NOTE | 2017-03-08 05:06 | NUR ---
PT REPOSITIONED, NO REQUESTS, BACK TO SLEEP.
--- NOTE | 2017-03-08 09:04 | NUR ---
PT RECEVIED HER AM XRAY STUDIES, DEMETRI-WELL. DENIES PAIN AT THIS TIME, AND STATES "I FEEL BETTER" "WEAK" . CHANGED NG TUBE PLACEMENT AND RETAPED AT THIS TIME. NEW IV SITE OBTAINED.
--- NOTE | 2017-03-08 09:26 | NUR ---
PT TURNED TO LEFT SIDE AT THIS TIME WITH A TWO PERSON ASSIT.
--- NOTE | 2017-03-08 09:40 | NUR ---
PER DR ORDER, REDUCED RATE OF LR FLUIDS TO 200ML/HR.
--- NOTE | 2017-03-08 11:10 | NUR ---
MAG FRANK RN HERE AT THIS TIME TO OBTAIN A PICC LINE PLACEMENT.
--- NOTE | 2017-03-08 12:06 | NUR ---
PT IS IN THE PROCESS OF RECEIVING A PICC LINE AT THIS TIME.
--- NOTE | 2017-03-08 13:06 | NUR ---
PICC LINE INSERTION NOTE ASKED BY DR. LAU TO EVALUATE PATIENT FOR A POTENTIAL PICC LINE PLACEMENT. AFTER REVIEWING THE CHART AND INTERVIEWING THE PATIENT AND FAMILY, NO ABSOLUTE CONTRAINDICATIONS WERE FOUND. PATIENT WAS ABLE TO VERBALIZE UNDERSTANDING OF PROCEDURE AND HAD HER SIGN THE CONSENT FORM. PT'S RIGHT ARM WAS EVALUTED FIRST USING THE SITE RITE U/S. PATIENT WAS NOTED TO ALL THREE VEINS IN THE RIGHT ARM, CEPHALIC, BRACHIAL, AND BASILIC THAT WERE POTENTIAL SITES FOR A PICC. THE BASILIC VEIN WAS CHOSEN IT APPEARED AT LEAST 7 FR ON THE SITE RITE U/S. CDC RECOMMENDED GUIDELINES WERE USED FOR CLEANING AND PREPARING THE PATIENT FOR PROCEDURE. PT'S LEFT ARM WAS ALSO EVALUTED BUT THE VEINS WERE NOTED TO BE SMALLER IN THIS ARM OVERALL. THERE WERE NO DIFFICULTIES IN ACCESSING THE VEIN WITH A CATHETER, THREADING THE GUIDEWIRE, INTRODUCER, OR PICC LINE. THE [employer] U/S GUIDED IMAGING WAS USED TO PLACE THE PICC LINE. CHEST XRAY WAS TAKEN AND APPROVAL GIVEN TO USE PICC LINE BY DR. POLLOCK. REPORT GIVEN TO COURTNEY. PATIENT AND FAMILY ENCOURAGED TO ASK QUESTIONS ABOUT THE PICC NEEDED.
--- NOTE | 2017-03-08 14:33 | NUR ---
PIC LINE PLACED EARLIER TODAY. PT RESTING ON SIDE-SAW ME AND MOTIONED ME IN. SHE SAID HELLO, AND ASKED HOW I WAS DOING. JUST LIKE HER. I COULD TELL SHE WAS NOT FEELING WELL. ASKED HER IF I COULD PRAY FOR HER-SHE HELD OUT HER HAND AND HELD MINE, WE PRAYED AND HER DAUGHTER AND NEPHEW CAME INTO THE ROOM. I ALSO HAD A BRIEF DISCUSSION WITH BRI HER OTHER DAUGHTER. SHE IS CERTAIN THAT MOM IS GOING TO PASS VERY QUICKLY, AND SAID SHE GAVE HER PERMISSION TO GO. I WILL CONTINUE TO FOLLOW NEEDED
--- NOTE | 2017-03-08 14:42 | NUR ---
FAMILY IN PT ROOM AT THIS TIME, ALSO FAMILY MEMBERS HOLDING PHONE TO PT EAR TO TALK TO SOMEONE. PT DENIES NEED FOR PAIN MEDICATIONS OR TO BE TURNED AT THIS TIME.
--- NOTE | 2017-03-08 14:44 | NUR ---
PT HAS WORKED WITH PHYSICAL THERAPY TODAY.
--- NOTE | 2017-03-08 15:18 | NUR ---
COMPLETE BED BATH GIVEN AND PT REPOSITIONED AT THIS TIME, FAMILY HAS LEFT. PT APPEARS TO BE RESTING COMFORTABLE AT THIS TIME.
--- NOTE | 2017-03-08 17:00 | NUR ---
PT MEICATED WITH 2 MG MORPHINE IVP AT THIS TIME FOR GENERALIZED PAIN. PT IS SITTING UP IN BED WATCHING TV AT THIS TIME. PT WANTED TO BE SITTING UP IN THE UP RIGHT POSITION IN BED AT THIS TIME. PT HAS CALL LIGHT IN HER HAND AND IN THE OTHER ON SHE HAS THE TV REMOTE. I JUST WANT TO WATCH [employer]!
--- NOTE | 2017-03-08 17:46 | NUR ---
PT URINE OUTPUT HAS INPROVED SOME THIS AFTERNOON. PT APPEARS TO BE MORE ALERT AND INVOLOVED IN WATCHING THE NEWS AT THIS TIME. PT PHYSICAL ASSESSMENT REMAIN UNCHAGED AT THIS TIME. OTHER THAN SHE IS MORE ALERT AT THSI TIME. HEAR RATE IS RESPONDING TO THE CARDIZEM AND LOPRESSOR IVP SLOWLEY.
--- NOTE | 2017-03-08 18:14 | NUR ---
PT DAUGHTER IS BACK AT THIS TIME. AL QUESTIONS ANSWERED.
--- NOTE | 2017-03-08 21:11 | NUR ---
BRYCE CL PLACED DURING THE DAY, SITE IS CDI, NO PAIN AT SITE, MONITORED.
--- NOTE | 2017-03-08 22:32 | NUR ---
PT DOES NOT WANT TO BE REPOSITIONED AT THIS TIME, DUE AT 2300
--- NOTE | 2017-03-09 00:19 | NUR ---
PT DOES NOT LIKE BLANKETS, AFEBRILE, NON-DIAPHORETIC. COOL CLOTH TO FOREHEAD BY FAMILY MEMBER - SLEEPING IN ROOM, CURRENTLY COMFORTING PT. NGT FLUSHED, OUTPUT 145 SINCE 1800. LUNGS CLEAR/DIMINISHED, BT ABSENT.
--- NOTE | 2017-03-09 01:22 | NUR ---
PT'S RR IS 24-30 SINCE ADMISSION, PHYSICIAN IS AWARE.
--- NOTE | 2017-03-09 01:24 | NUR ---
PT BREATHES SHALLOW, NO SOB OTHER THAN WITH EXERTION.
--- NOTE | 2017-03-09 02:54 | NUR ---
PT VERBALIZED SHE IS SLEEPING, PAIN DECREASED.
--- NOTE | 2017-03-09 04:46 | NUR ---
PT IS SLEEPING, FC OUTPUT 115 ML MOST RECENT 4 HOURS, AFEBRILE, CARDIZEM GTT AT 10 MG/HR. ZOSYN, FLAGYL IV PIGGYBACK PER EMAR.
--- NOTE | 2017-03-09 05:25 | NUR ---
PT'S DAUGHTER JIA CAN BE CONTACTED REGARDING HER CARE PER PT.
--- NOTE | 2017-03-09 05:46 | NUR ---
NGT EXTERNAL CM PLACED.
--- NOTE | 2017-03-09 08:00 | NUR ---
PT IS RESTING SAFELY IN BED WITH CALL LIGHT IN REACH AND EYES CLOSED, RESPERATIONS ARE EVEN. PT AWOKE FOR TEMP AND THEN FELL BACK ASLEEP.
--- NOTE | 2017-03-09 08:54 | NUR ---
PT AWAKENS TO VOICE - ASSESSMENT COMPLTETED - DENIES C/O AT THIS TIME. DR. LAU IN TO ASSESS PT AND TALK TO HER AND HER DAUGHTER ABOUT THE PLAN OF CARE. R.T. HERE PT REPOSITIONED IN BED THEN WORKED WITH PT ON IS/ACAPELLA. PT DEMETRI WELL. PT NOW RESTING ON LEFT SIDE WITH PILLOW TO BACK.
--- NOTE | 2017-03-09 10:00 | NUR ---
PT WAS GIVEN A COMPLETE BEDBATH WELL A SHAMPOO CAP AND CATHETAR/JESUS ALBERTO CARE. LINENS AND GOWN WERE CHANGED. PT WAS TRANSFERED TO CHAIR WITH 2 PEOPLE ASSIST. PT IS NOW SITTING IN CHAIR WITH FEET UP AND CALL LIGHT IN REACH. PT ASKED FOR A WARM BLANKET
--- NOTE | 2017-03-09 10:07 | NUR ---
DR. QUEVEDO IN TO ASSESS PT. XRAY HERE FOR ABD UPRIGHT PER DR. QUICK. SPONGE BATH GIVEN AND PT UP TO JANA CHAIR WITH 2 PERSON ASSIST. PT DEMETRI WELL. NGT TO WALL SUCTION, 02 AT 2L PER NC WITH SATS 95%.
--- NOTE | 2017-03-09 11:07 | NUR ---
PT REMAINS IN JANA CHAIR, FAMILY IN ROOM. PT USING IS AND ACAPELLA.
--- NOTE | 2017-03-09 12:07 | NUR ---
ASSESSMENT COMPLETED. PT RETURNED TO BED WITH 2 PERSON ASSIST, RESTING ON LEFT SIDE WITH PILLOW TO BACK AND BETWEEN KNEES. AT BEDSIDE. URINE OUTPUT LOW/CONCENTRATED. NGT FLUSHED WITH 40 MLS WATER AND IS DRAINING GREEN FLUID.
--- NOTE | 2017-03-09 15:42 | NUR ---
P.T. HERE AND PT UP TO [facility] CHAIRWITH 2 PERSON ASSIST AND PT USING WALKER. P.T. WORKING WITH PT.
--- NOTE | 2017-03-09 18:19 | NUR ---
PT RETURNED TO BED WITH 2 PERSON ASSIST. PT RESTING ON RIGHT SIDE BUT STATES UNABLE TO BREATHE VERY WELL. TURNED TO LEFT SIDE, HOB ELEVATED, 02 AT 3L AND INCREASED TO 4L PER NC. SATS NOW 95%
--- NOTE | 2017-03-09 18:24 | NUR ---
PT MEDICATED WITH TYLENOL SUPPOSITORY 325 MG MT FOR C/O BACK PAIN "12/10".
--- NOTE | 2017-03-10 00:13 | NUR ---
PT IS IN BED, DOES NOT NEED REPOSITIONING, BEDRAIL PILLOW/BLANKET TO PROTECT BONY PROMINENCES, UO QS.
--- NOTE | 2017-03-10 02:59 | NUR ---
PT REPOSITIONED X2, PT VERBALIZES IMPORTANCE OF ALLOWING PILLOWS TO BE PLACED UNDER EACH SIDE. PT ABLE TO RECITE HX OF SKIN PROBLEMS. PT COUGHS PERIODICALLY, LOOSE COUGH CURRENTLY DRY, ABLE TO HOLD YANKAUER, HAS NOT USED. CONTINUE TO REINFORCE. UO YELLOW, QS. VS WNL. LVH IN V LEAD UNCHANGED FROM EKG. WATCHING TV, ATE ONE CUP OF JELLO.
--- NOTE | 2017-03-10 03:04 | NUR ---
PT CARED FOR BY BOTH ASSIGNED CCU RN'S INTERMITTENTLY DURING NOC SHIFT.
--- NOTE | 2017-03-10 09:22 | NUR ---
ZOSYN SITE CHANGED TO SL ON RIGHT WRIST. PT AWAKE AND VITAL SIGNS TAKEN. PT INCONT OF LIQ BROWN STOOL. SPONGE BATH GIVEN AND PT UP TO JANA CHAIR WITH 2 PERSON ASSIST. PT DEMETRI FAIR, PT IS WILLING TO TRY TO MOVE. GENERALIZED EDEMA IMPROVING. NGT REPOSITIONED AND RETAPED D/T SMALL PINK AREA ON LEFT NARES.
--- NOTE | 2017-03-10 10:20 | NUR ---
ASSESSMENT COMPLETED, PT DENIES C/O PAIN AT THIS TIME. PT RESTING IN JANA CHAIR. REAL DRAINING YELLOW URINE. NGT FLUSHED WITH 40 MLS WATER AND DRAINING GREEN FLUID.
--- NOTE | 2017-03-10 11:36 | NUR ---
PT INCONT OF LIQ BROWN/GREEN STOOL, TRANSFERRED TO BSC WITH 2 PERSON ASSIST. PT HAD MORE STOOL. TRANSFERRED TO BED WITH CHUX IN PLACE AND ATTENDS ALSO INPLACE. DESITIN APPLIED TO RED AREA ON BUTTOCKS. PT TURNED TO LEFT SIDE WITH PILLOW TO BACK AND BETWEEN KNEES, SCD'S ON BILAT, NGT DRAINING GREEN FLUID.
--- NOTE | 2017-03-10 11:48 | NUR ---
ASSESSMENT COMPLETED. PT RESTING IN BED ON LEFT SIDE NO C/O AT THIS TIME.
--- NOTE | 2017-03-10 12:01 | NUR ---
DR. QUEVEDO IN TO ASSESS PT. FAMILY HERE ALSO.
--- NOTE | 2017-03-10 16:30 | NUR ---
P.T. HERE TO WORK WITH PT. ATTENDS CHANGED D/T INCONT OF LIQ STOOL. PT UP WITH 2 PERSON ASSIST AND USING WALKER WALKED AROUND THE ROOM FROM ONE SIDE OF THE BED TO THE OTHER. PT SAT ON EDGE OF BED AND WAS ABLE TO PERFORM A FEW FOOT EXERCISES WITH P.T. BEFORE RETURNING TO BED. ATTENDS CHANGED AGAIN D/T INCONT OF STOOL. PT RESTING ON RIGHT SIDE WITH PILOW TO BACK AND BETWEEN KNEES.
--- NOTE | 2017-03-10 18:50 | NUR ---
PT UNABLE TO REST. PT HAD SMALL LIQ THICK BROWN/GREEN STOOL. ATTENDS CHANGED. PT TURNED TO LEFT SIDE, NGT IN PLACE, TOLD PT THAT WE CAN TAKE OUT NGT BUT PT REFUSED AT THIS TIME. WILL LEAVE NGT CLAMPED FOR THE NIGHT AND WILL REMOVE IN THE MORNING OR DURING THE NIGHT IF PT IS WILLING.
--- NOTE | 2017-03-10 23:03 | NUR ---
Repositioned patient on right ride with pillow between her legs. Patient denies other needs. Call light in reach.
--- NOTE | 2017-03-10 23:31 | NUR ---
REPOSITIONED PATIENT AND MEDICATED HER WITH 2MG IV MORPINE, PATIENT RESTING COMFORTABLY AT THIS TIME BUT STATES "I JUST WANT SOMETHING TO HELP ME SLEEP" DAUGHTER AT BEDSIDE AND VERY ATTENTIVE TO PATIENT.
--- NOTE | 2017-03-11 01:19 | NUR ---
PATIENT SLEEPING ON LEFT SIDE IN NO DISTRESS. PATIENT'S SLEEPING IN ROOM.
--- NOTE | 2017-03-11 02:44 | NUR ---
CHECKED RESIDUAL ON NGT. SCANT DRAINAGE. PT DENIES NAUSEA. PT HAS REFUSED TO ALLOW RN TO REMOVE NGT PRIOR TO THIS POINT. PATIENT AGREES. THIS RN REMOVES NGT. PATIENT STATES "I DIDN'T EVEN FEEL THAT TUBE COMING OUT." PATIENT REPOSITIONED ON RIGHT SIDE, CALL LIGHT IN REACH.
--- NOTE | 2017-03-11 04:08 | NUR ---
PATIENT REPOSTIONED ON RIGHT SIDE WITH PILLOW BETWEEN LEGS. PATIENT ALERT, ORIENTED. DENIES PAIN/NAUSEA. CALL LIGHT IN REACH.
--- NOTE | 2017-03-11 04:23 | NUR ---
PATIENT MOANING AND CRYING OUT IN HER SLEEP. WHEN AWAKENED PATIENT STATES "I MUST HAVE BEEN DREAMING." PATIENT DENIES PAIN/NAUSEA. CALL LIGHT IN REACH.
--- NOTE | 2017-03-11 05:05 | NUR ---
PATIENT HAS 13 BEATS OF V-TAC. PATIENT ASYMPTOMATIC WITH THIS. BP 114/42 MAP 56. PULSE IN THE 80'S. PATIENT SLEEPS THROUGH THIS EPSIODE. AWAKENS EASILY AND DENIES PAIN, PATIENT STATES "WHY DID YOU WAKE ME UP AGAIN?!"
--- NOTE | 2017-03-11 05:09 | NUR ---
DR VELIZ NOTIFIED OF V-TACH, WILL CHECK MAGNESIUM LEVEL IN AM.
--- NOTE | 2017-03-11 06:54 | NUR ---
Patient up to chair with 2 person standby assist. Patient tolerates well. Call light in reach, scds on, titrated 02 to 2L NC. sats 94%. Patient alert, oriented and denies pain. No nausea. Discussed plan of care with patient. Patient uses IS with poor technique. Updated MD on patients night. Patient to start oral cardizem this am.
--- NOTE | 2017-03-11 09:20 | NUR ---
PT RETURNED TO BED WITH 2 PERSON ASSIST. STATES BEING VERY TIRED. ATTENDS CHANGED D/T INCONT OF SMALL LIQ STOOL. PT RESTING ON LEFT SIDE WITH PILLOW TO BACK AND BETWEEN KNEES, FAMILY MEMEBER AT BEDSIDE.
--- NOTE | 2017-03-11 09:23 | NUR ---
LAB DRAW FROM PICC LINE COMPLETED BY RN. 10 MLS WASTED AND 5 MLS GIVEN TO WEIGHT LOSS PHYSICIAN, PICC LINE FLUSH WITH 20 MLS NS. IV FLUIDS NOW RUNNING CONTINUOUSLY.
--- NOTE | 2017-03-11 09:33 | NUR ---
DR. QUEVEDO IN TO ASSESS PT AND TALK WITH PT AND FAMILY MEMBER.
--- NOTE | 2017-03-11 16:24 | NUR ---
P.T. HERE AND PT UP IN ROOM. AMBULATED AROUND THE BED AND DID LEG EXERCISES WHILE SITTING ON EDGE OF BED. RETURNED TO BED. ASSESSMENT COMPLETED.
--- NOTE | 2017-03-11 17:19 | NUR ---
WENT IN ROOM TO GIVE PATIENT WASHCLOTH.
--- NOTE | 2017-03-11 18:40 | NUR ---
pt c/o abd cramping and discomfort. pt not able to eat any dinner as he is feeling slightly nauseated. zofran given at 1700. pt sat up at side of bed, able to belch several times, states he feels some relief. pt ambulated to the toilet with assistance from walker and stand by assist. pt able to pass large amounts of flatus and moderate amount of liquid stool. pt states he feels "much better". bed linens changed, pt back to bed, call light within reach. pt alert and oriented x4.
--- NOTE | 2017-03-11 20:14 | NUR ---
IN TO CHECK ON PT, SLEEPING AND RESTFUL, HR 98, RR 30 RESP EVEN AND UNLABORED.
--- NOTE | 2017-03-11 23:08 | NUR ---
PT CONTINUES TO SLEEP, RESTFUL. RESP EVEN AND UNLABORED, HR 70.
--- NOTE | 2017-03-12 | NUR ---
IN TO REPOSITION PT/ASSESSMENT DONE. PT C/O PAIN AND RESTLESSNESS, 2MG IV MORPHINE GIVEN. ICE CHIPS GIVEN.
--- NOTE | 2017-03-12 01:52 | NUR ---
PT SLEEPING, RESP EVEN ANDUNLABORED.
--- NOTE | 2017-03-12 05:15 | NUR ---
PT INC STOOL, REPOSITIONED, LINENS CHANGED, JESUS ALBERTO CARE DONE, DESITIN AND NYSTATIN POWDER APPLIED, PT DENIES NEED FOR ANY PAIN MEDICINE.
--- NOTE | 2017-03-12 10:11 | NUR ---
PT UP TO JANA CHAIR THIS A.M. AND ATE A FEW BITES OF JELLO AND STARTED TO COUGH, PT NOW DRINKING WATER WITHOUT PROBLEMS AND TOOK A.M. MEDS WITHOUT DIFFICULTY.
--- NOTE | 2017-03-12 10:33 | NUR ---
DIETITION IN TO TALK WITH PT AND FAMILY MEMBERS.
--- NOTE | 2017-03-12 11:13 | NUR ---
REPORT GIVEN TO ISRA GRANT, PT ON TELE #8 AND TRANSFERRED TO ROOM 121 VIA JANA CHAIR WITH [employer] SALES CONSULTANT AND SHIP SCALER.
--- NOTE | 2017-03-12 11:46 | NUR ---
PATIENT IS NOW ON A CLEAR LIQUID DIET. HER TWO DAUGHTERS ARE ASKING TO TALK TO SOMEONE ABOUT THE PATIENT'S FOOD. THEY STATE THAT THE FOOD HAS NO FLAVOR SO THE PATIENT DOESN'T WANT TO EAT IT. SHE HASN'T EATEN FOR SEVERAL DAYS TO DUE TO A BOWEL OBSTRUCTION, BUT DID HAVE SOLID FOOD WHEN WAS FIRST ADMITTED ON . THE DAUGHTERS REQUESTED LIGHT CRANBERRY JUICE FOR THE PATIENT TO TRY AND RED JELLO. THEIR BIGGEST COMPLAINT IS OUR FOOD HAS NO FLAVOR. I WILL CONTINUE TO MONITOR PATIENT'S FOOD PREFERENCES AND WORK WITH THE SEAL SKINNER ON GETTING THE PATIENT WHAT SHE LIKES SO SHE WILL EAT. PATIENT NEEDS TENDER MEATS, MAY NEED MEATS CHOPPED WITH GRAVY BECAUSE SHE HAS SOME LOOSE TEETH.
--- NOTE | 2017-03-12 12:11 | NUR ---
PT TO FLOOR, TO ROOM 121 AT 1110. PT INCONTINENT OF STOOL, ASSISTED TO CHANGE INTO CLEAN ATTENDS. STOOL WAS LIQUID. PT ASSISTED TO POSITION WITH PILLOW UNDER RIGHT HIP. ASSISTED TO POSITION FOR COMFORT.
--- NOTE | 2017-03-12 12:41 | NUR ---
DR. HARRY NOTIFIED OF PT'S RESPIRATORY RATE OF 39, TEMPERATURE OF 99.0. NOTIFIED DR. HARRY THAT PT'S RESPIRATIONS ARE SHALLOW AND TACHYPNIC. PT REMAINS ON 2L 02 VIA NC, OXYGEN SATURATION LEVEL 90%. DR. HARRY VERBALIZED UNDERSTANDING OF ABOVE NOTED.
--- NOTE | 2017-03-12 12:52 | NUR ---
got a report from RN patient resting. will be in to turn her at 1400.
--- NOTE | 2017-03-12 13:07 | NUR ---
THIS RN NOTED THAT DESPITE PT HAVING O2 2L VIA NC GOING, NO OXYGEN ORDER NOTED. REVIEWED ALL ORDERS FROM THIS VISIT, AND NOTED AN ORDER FOR OXYGEN AT 2L VIA NC TO KEEP SATURATION LEVEL GREATER THAN 90% AND AN ORDER FOR RT ASSESSMENT AND EVAL: CONSIDERATION FOR ACAPELLA AND ANY OTHER INTERVENTION FOR LLL PNA.... THESE ORDERS WERE MARKED COMPLETE BY RT JOE ON 03/11/17. VERRIFIED THIS WITH JOE, WHO STATED THAT THIS WAS AN ERROR, AND THESE ORDERS SHOULD STILL BE ACTIVE.
--- NOTE | 2017-03-12 13:17 | NUR ---
PT MOVED FROM CCU TO M/S 121. FAMILY IS LEFT FOR NOW, AND PT IS RESTING. RUDY DHALIWAL REQUESTED I NOT DISTURB HER AT THIS TIME. WILL FOLLOW NEEDED
--- NOTE | 2017-03-12 13:19 | NUR ---
SPOKE WITH DR. HARRY ON PHONE, NOTIFIED HER THAT PT HAD RESPIRATORY ORDERS THAT WERE COMPLETED BY RT JOE IN ERROR 03/11/17. DR. HARRY STATED THAT SHE WOULD REENTER RT ORDERS, INCLUDING ORDERS FOR NEB TX.
--- NOTE | 2017-03-12 13:21 | NUR ---
PT MOVED FROM CCU #130 TO MED/SURG #121. FAMILY HAS LEFT, PT IS RESTING. RUDY DHALIWAL REQUESTED I NOT DISTURB PT AT THIS TIME
--- NOTE | 2017-03-12 14:45 | NUR ---
PATIENT SHORT OF BREATH AND ASKED FOR MORPHINE. RN NOTIFIED. NO OTHER NEEDS. FAMILY IN ROOM.
--- NOTE | 2017-03-12 14:49 | NUR ---
PT'S OXYGEN SATURATION LEVEL IN MID 80s ON 2L O2, AND 88-89% ON 3L PER KERRI ESPINAL REPORT. THIS RN TO ROOM, INCREASED OXYGEN TO 4L VIA NC, ENCOURAGED DEEP SLOW BREATHS, PT'S OXYGEN SATURATION LEVEL UP TO 93%. CALLED DORITA, RT, REQUESTED THAT SHE COME ASSESS PT AND POSSIBLY GIVE PRN NEB TX. DORITA AGREED.
--- NOTE | 2017-03-12 15:30 | NUR ---
PT PLACED ON 4L O2 VIA OXY MASK BY RT DORITA. OXYGEN SATURATION LEVEL 90-93%. PT REMAINS TACHYPNIC, BREATHS SHALLOW.
--- NOTE | 2017-03-12 16:05 | NUR ---
PT ON 5L O2 VIA OXY MASK, SATURATION LEVEL 93%. NOTIFIED DR. HARRY THAT PT'S OXYGEN LEVEL DECREASED TO MID 80s, AND THAT PT CONTINUED TO HAVE SHORTNESS OF BREATH AND TACHYPNEA. NOTIFIED DR. HARRY THAT PT WAS PLACED ON OXY MASK AT 5L TO MAINTAIN SATURATION LEVEL GREATER THAN 90%. DR. HARRY VERBALIZED UNDERSTANDING.
--- NOTE | 2017-03-12 16:30 | NUR ---
PATIENT TURNED ONTO LEFT SIDE. PATIENT HAD BM. CHANGED HER ATTENDS. NO OTHER NEEDS AT THIS TIME. CALL BUTTON IN REACH.
--- NOTE | 2017-03-12 17:18 | NUR ---
YAIMA, SPEECH THERAPIST IN WITH PT, EVALUATED PT WHILE EATING/DRINKING. REPORTED THAT SHE PLANS TO REEVALUATE PT IN AM, AND THAT SHE RECOMENDS PT CONTINUE WITH WATER AND CLEAR LIQUIDS AT THIS TIME. SPEECH THERAPIST REPORTED THAT PT IS ASPIRATING WITH CLEAR LIQUIDS.
--- NOTE | 2017-03-12 19:16 | NUR ---
patient turned. one pillow under each hip. patient requested medication for anxiety. call button in reach. no other needs at this time. RN notified.
--- NOTE | 2017-03-12 19:20 | NUR ---
SHIFT REPORT RECIEVED. PATIENT RESTING IN BED. EYES CLOSED. FAMILY IN ROOM. PATIENT HAS INCREASED SOB. PRN MORPHINE GIVEN. PULSE OX O2 96% ON 4L OXI MASK. PATIENT APPEARS TO BE RESTING COMFORTABLY. NO FURTHER NEED AT THIS TIME. CALL LIGHT IN REACH.
--- NOTE | 2017-03-12 20:18 | NUR ---
EVENING MEDS GIVEN PER ORDER. PATIENT REQUEST TO BE TURNED TO LEFT SIDE. POSITIONED WITH PILLOWS. PATIENT STATES SHE IS COMFORTABLE. PULSE OX 96% ON 4L OXI MASK. TPN IS INFUSING. PICC LINE DRAWS BLOOD AND WAS FLUSHED WITH 10ML NS, AND HEPARIN PER ORDERS. SITE APPEARS WNL, SMALL AMOUNT OF DRIED BLOOD UNDER THE DRESSING. LUNGS SOUNDS ARE CLEAR IN UPPER LOBES, DIMINISHED IN LOWER LOBES. BOWEL SOUNDS ACTIVE, ABD SOFT AND NONTENDER. PATIENT HAS MODERATE GENERALIZED EDEMA. REAL IS IN PLACE, URINE IS PHIL IN COLOR. NYSTATIN APPLIED PER ORDERS TO PANIS AREA. SLIGHTLY RED. PATIENT ON TELE, IRREGULAR HR NOTED. HR 82 AT REST. PATIENT DENIED FURTHER NEEDS. FAMILY AGREES TO CALL FOR ASSISTANCE WITH ANY NEEDS. PATIENT'S TWO DAUGHTERS WILL BE STAYING THE NIGHT.
--- NOTE | 2017-03-12 22:05 | NUR ---
PATIENT RESTING. EYES CLOSED. RR 20. PULSE OX 96% ON 4L OXI MASK. TPN INFUSING. SCDS AND HEEL PROTECTORS IN PLACE. REAL DRAINING. FAMILY AT BEDSIDE. CALL LIGHT IN REACH.
--- NOTE | 2017-03-13 00:05 | NUR ---
PATIENT RESTING. EYES CLOSED. RR 22. PULSE OX 96% ON 4L OXI MASK. CALL LIGHT IN REACH. FAMILY AT BEDSIDE.
--- NOTE | 2017-03-13 00:50 | NUR ---
PATIENT RESTING ON LEFT SIDE, STATES SHE IS COMFORTABLE IN THAT POSITION. REQUESTED PRN MORPHINE FOR INCREASED SOB. THIS WAS GIVEN TO HER. PATIENT DENIES FURTHER NEEDS AT THIS TIME. CALL LIGHT IN REACH.
--- NOTE | 2017-03-13 02:30 | NUR ---
PATIENT RESTING ON LEFT SIDE. MAKING MOANING NOISES. EYES CLOSED, RR 20. PATIENT AROUSED TO VOICE. DENIED PAIN. DENIED WANTING TO BE TURNED. PULSE OX O2 AT 92% ON 4L NC. DENIES ANY NEEDS AT THIS TIME. CALL LIGHT IN HAND.
--- NOTE | 2017-03-13 02:37 | NUR ---
PATIENT VS COMPLETED, WNL. PATIENT UP TO THE BATHROOM. 1PA W/FWW. BALANCED APPEARS TO BE IMPAIRED. PATIENT REPORTS BEING DROWSEY. PAIN REPORTED AT 6/10. SCHEDULED PAIN MEDS GIVEN. PATIENT ASSISTED BACK TO BED. ICE PACK PLACED ON LEFT KNEE. DRESSING IS INTACT, NO NEW DRAINAGE. PATIENT REQUEST WATER, FRESH ICE WATER PROVIDED. HOB ELEVATED. PULSE OX O2 98%, 2L NC. NO FURTHER REQUEST AT THIS TIME. CALL LIGHT IN REACH.
--- NOTE | 2017-03-13 04:40 | NUR ---
PATIENT HAD INCREASED WORK OF BREATHING. REQUESTED PRN MORPHINE, WHICH WAS GIVEN. PULSE OX 92% ON 4L NC. PATIENT DOES NOT WANT TO WEAR THE OXI MASK. TURNED PATIENT PARTIALLY ONTO HER BACK. PATIENT STATES SHE IS COMFORTABLE. CALL LIGHT IN REACH.
--- NOTE | 2017-03-13 05:19 | NUR ---
PATIENT RESTED WELL THROUGHOUT THE SHIFT. MORPHINE FOR SOB GIVEN X3. PULSE OX 88-96% ON 5L NC. CLEAR LIQUID DIET, PATIENT UNINTERESTED IN DRINKING. PICC IN RIGHT ARM, PULLS BLOOD. TPN INFUSING. GLUCOSE CHECKS. REAL. TELE #8. PATIENT DENIED PAIN DURING THE SHIFT. PATIENT AROUSES EASILY AND IS ORIENTED TO ALL BUT THE DATE. FAMILY IN ROOM.
--- NOTE | 2017-03-13 06:19 | NUR ---
MORNING LABS DRAWN FROM PICC, 10ML WASTE. SENT TO LAB. PATIENT DENIES NEEDS AT THIS TIME. PULSE OX, 92% ON 5L NC. MORNING MEDS GIVEN. IV SITE WNL. PICC LINE DRAWS BLOOD AND FLUSHED WITH 20ML NS AFTER BLOOD DRAW. TPN INFUSING. HEEL PROTECTORS AND SCDS IN PLACE. REAL DRAINING. FAMILY AT BEDSIDE. CALL LIGHT IN REACH.
--- NOTE | 2017-03-13 06:39 | NUR ---
CONTACTED THE MD TO CLARIFY THE DAILY WEIGHT ORDER. PATIENT IS ACTIVITY INTOLERANT AND UNABLE TO STAND FOR WEIGHT AT THIS TIME. BED SCALE DOES NOT APPEAR ACCURATE. MD STATED THAT DAILY WEIGHT ORDER IS STILL ACTIVE AND WOULD LIKE AN ACCURATE WEIGHT OBTAINED TODAY. MD STATED TO WAIT UNTIL PT GETS THE PATIENT OUT OF BED. THEN ZERO OUT THE BED TO GET DAILY WEIGHTS FROM THE BED. SHE WOULD ALSO LIKE A STANDING WEIGHT IF THE PATIENT CAN TOLERATE IT. WILL PASS THIS ALONG TO DAY SHIFT RN.
--- NOTE | 2017-03-13 07:35 | NUR ---
PATIENT RESTING IN BED. ON LEFT SIDE. 2 DAUGHTERS IN ROOM. PATIENT HANDS AND FACE WASHED. NO OTHER NEEDS AT THIS TIME. CALL BUTTON IN REACH.
--- NOTE | 2017-03-13 07:58 | NUR ---
PT IN BED, AWAKE, DROWSY, ANSWERS QUESTIONS APROPRIATLY. BG CHECKED, 225. DAUGHTER AT BEDSIDE. MEDICAL STUDENT AT BEDSIDE ASSESSING PT.
--- NOTE | 2017-03-13 09:40 | NUR ---
BED BATH DONE. REAL CARE DONE. LINENS CHANGED. PATIENT UP TO CHAIR 2 PERSON ASSIST WITH WALKER. ST WITH PATIENT ASSESING HER. RN, STUDENT NURSE AND DAUGHTERS IN ROOM.
--- NOTE | 2017-03-13 09:41 | NUR ---
PT HAD LARGE LOOSE INCONTINENT BM. ASSISTED PT IN CLEANING UP, BED BATH. NYSTATIN APPLIED TO AFFECTED AREAS. PT UP TO RECLINER WITH 2 PERSON ASSIST, USING FWW, TOOK APROXIMATELY 6 STEPS. PT VERY OUT OF BREATH AFTER THIS ACTIVITY, IS RESTING IN CHAIR ATTEMPTING TO CATCH BREATH. REMAINS ON 5L O2. OXYGEN SATURATION LEVEL 92%. RESPIRATORY RATE REMAINS ELEVATED, 29 BPM. SPEACH THERAPIST, YAIMA, IN ROOM, ATTEMPTING TO ASSESS PT. AKIKO ON BED CHANGED BY KYLIE MANNING. KRISHAN AT BEDSIDE.
--- NOTE | 2017-03-13 09:57 | NUR ---
YAIMA, SPEECH THERAPIST REPORTED THAT PT IS STILL ASPIRATING LIQUIDS, STATED THAT IT IS OK TO CONTINUE WITH THIN LIQUIDS AT THIS TIME, AND THAT SHE OR ANOTHER THERAPIST WILL RETURN LATER TODAY TO FURTHER EVALUATE.
--- NOTE | 2017-03-13 11:04 | NUR ---
PT SITTING UP IN RECLINER, SIPPING GLUCERNA. PT REPORTS THAT SHE "THINKS SHE'S FEELING BETTER" COMPARED TO YESTERDAY. WORK OF BREATHING APPEARS DECREASED, RESPIRATORY RATE 38.
--- NOTE | 2017-03-13 11:42 | NUR ---
2 person assist patient with fww back to bed. clean attends on. Patient laying onto left side. call button in reach. family in room with RN and Hospitalist. No other needs at this time.
--- NOTE | 2017-03-13 12:22 | NUR ---
PT IN BED, AWAKE, ALERT. RECIEVING NEBULIZER TREATMENT FROM RT DORITA. DENIES PAIN. REMAINS ON 5L O2 VIA NC, SAT 97%.
--- NOTE | 2017-03-13 14:00 | NUR ---
PATIENT UP WITH PT. CHANGED PATIENTS ATTENDS. REAL CATH CARE DONE. SKIN CARE DONE. POSTITIONED PATIENT ON BED WITH ONE PILLOW UNDER EACH HIP. CALL BUTTON IN REACH. NO OTHER NEEDS AT THIS TIME.
--- NOTE | 2017-03-13 14:20 | NUR ---
PT RESTING IN BED ON SIDE. SHE KNEW WHO I WAS, CALLED ME BY NAME. STUDENT RN REARRANGING BEDDING AND CHECKING IV SIGHT. JUST VISITED A SHORT TIME. VOICED A PRAYER FOR HER-SHE THANKED ME. DIS. MEDARDO OCHOA ASKED ME TO CONTACT HER GRANDSON LEISA AND HAVE HIM COME FOR A CARE CONF @ 3PM TODAY. HAD TO LEAVE [facility]. ALSO CALLED HIS -LEFT [facility] ALSO. WILL CHECK BACK
--- NOTE | 2017-03-13 14:59 | NUR ---
PT SLEEPING SOUNDLY IN BED. FAMILY AT BEDSIDE. REMAINS ON 5L O2 VIA NC, OXYGEN SATURATION LEVEL 93%.
--- NOTE | 2017-03-13 16:12 | NUR ---
CARE CONFERENCE MET WITH PATIENTS FAMILY IN REPORT ROOM. DAUGHTERS, , GRANDSON AND . DR HARRY, MYSLEF GROUND SUPPORT AGENT, MARIA E DEMAND EQUIPMENT REPAIRER, EVELYN CHARGE NURSE, RAMU ROBERTS, ENA DIETITIAN, MEDICAL STUDENT. PATIENTS CONDITION WAS DISCUSSED BY DR HARRY. QUESTIONS ANSWERED. FAMILY STATING PATIENT HAS STATED IN THE PAST SHE DOESN'T WANT LIFE SUPPORT OF ANY KIND. DAUGHTER STATED PATIENT HAS STATED TO HER IN THE ROOM SEVERAL TIMES SHE WANTS TO " [place]". FAMILY HAS QUESTIONS REGARDING WHAT OPTIONS THEY HAVE FOR HER TO STOP BEING TREATED AND JUST LET "NATURE" OCCUR. DISCUSSED OPTIONS INCLUDING HOSPICE, CONTINUE TREATMENT IS, OR TRANSFER TO HIGHER CARE IF WANTING EVERYTHING DONE. FAMILY WILL TALK WITH PATIENT ABOUT HER WISHES GOING FORWARD. FOR NOW, IT IS DECIDED TO CONTINUE TREATMENT IS HERE. THEY STATE PATIENT WANTS TO SEE HER PCP, DR LAU WHEN HE IS BACK IN A FEW DAYS. NO FURTHER QUESTIONS AT THIS TIME. FAMILY STATE THEY HAVE BEEN VERY HAPPY WITH ALL TREATMENT HERE FOR THE PATIENT.
--- NOTE | 2017-03-13 16:26 | NUR ---
PT'S FAMILY DISCUSSED PT'S WISHES REGARDING HER CODE STATUS, PT WISHES TO REMAIN A FULL CODE AT THIS TIME. FAMILY TO NOTIFY IF PT'S WISHES CHANGE.
--- NOTE | 2017-03-13 17:44 | NUR ---
PT HAD LARGE LOOSE INCONTINENT STOOL. PT CLEANED UP WITH ASSISTANCE FROM THIS RN AND RESTAURANT SHIFT LEADER. PT REPOSITIONED ONTO BACK, WITH HIPS FLOATED ON PILLOWS. PT'S HOB ELEVATED. PT DROWSY, BUT ALERT, ORIENTED X 4.
--- NOTE | 2017-03-13 17:52 | NUR ---
PATIENT LAYING IN BED. ATTENDS CHANGED. JESUS ALBERTO AND SKIN CARE DONE. LINENS AND GOWN CHANGED. PATIENT ON TO BACK WITH A PILLOW UNDER EACH. HIP. NO OTHER NEEDS AT THIS TIME.
--- NOTE | 2017-03-13 18:28 | NUR ---
PT C/O FEELING SHORT OF BREATH, WORSE THAN SHE HAD FELT. REMAINS ON 5L O2 VIA NC, OXYGEN SATURATION LEVEL 92%. GAVE MORPHINE 2 MG IV PRN. PT DENIED PAIN.
--- NOTE | 2017-03-13 18:31 | NUR ---
PT REPORTED TO THIS RN THAT SHE WISHES TO BE A DNR/DNI. STATED THAT "NO" SHE DID NOT WANT CPR PERFORMED ON HER IF SHE WAS FOUND WITHOUT A PULSE OR WITHOUT RESPIRATIONS, AND ALSO STATED THAT "NO", SHE DOES NOT WANT TO BE "SHOCKED" OR RECIEVE MEDICAITONS TO REVIVE HER IF SHE IS FOUND WITHOUT PULSE OR WITHOUT RESPIRATIONS. DAUGHTERS IN ROOM WITH PT, BOTH VERBALIZED AGREEMENT OF THE ABOVE NOTED.
--- NOTE | 2017-03-13 19:00 | NUR ---
SHIFT REPORT RECIEVED. PATIENT RESTING IN BED. FAMILY AT BED SIDE.
--- NOTE | 2017-03-13 20:00 | NUR ---
EVEING MEDS GIVEN PER ORDER. PATIENT ASSESSMENT COMPLETED. LUNGS ARE CLEAR IN UPPER LOBES, DIMINISHED IN BASES. RT GAVE NEB TREATMENT. PATIENT 94% ON 5L NC. ABD IS FIRM AND NONTENDER. BOWEL SOUNDS HYPOACTIVE. PATIENT NOT INTERESTED IN FLUIDS OFFERED. GENERALIVED EDEMA NOTED. HEEL PROTECTORS IN PLACE. REAL DRAINING PHIL COLORED URINE. PTN AND LIPIDS INFUSING INTO PICC, NO NEW DRAINAGE UNDER THE DRESSING. IVF INFUSING, SITE WNL. SCDS IN PLACE. PATIENT FLOATED ON PILLOWS. STATES SHE IS COMFORTABLE. NO JESUS ALBERTO CARE REQUIRED AT THIS TIME. CALL LIGHT IN REACH. FAMILY AT BEDSIDE.
--- NOTE | 2017-03-13 20:30 | NUR ---
PATIENT RESTING IN BED. FAMILY AT BEDSIDE. PATIENT DENIED NEED FOR PRN MORPHINE OR TO BE REPOSITIONED. NO JESUS ALBERTO CARE AT THIS TIME. CALL LIGHT IN REACH.
--- NOTE | 2017-03-13 21:40 | NUR ---
PATIENT REQUESTED TO BE REPOSITIONED. TURN ONTO HIGH LEFT SIDE. PATIENT REQUEST PRN MORPHINE, WHICH WAS GIVEN TO HER. PULSE OX, 94% ON 5L NC. RR 36. BREATHING SHALLOW. FAMILY AT BEDSIDE. CALL LIGHT IN PATIENT'S HAND.
--- NOTE | 2017-03-13 23:30 | NUR ---
PATIENT RESTING IN BED. DENIES NEEDS AT THIS TIME. DOES NOT WANT TO BE MOVED. CALL LIGHT IN REACH. PULSE OX, 94% ON 5L NC.
--- NOTE | 2017-03-14 01:45 | NUR ---
PATIENT RESTING. AROUSED WHEN RN ENTERED ROOM. DECLINED PAIN OR ANY NEEDS. REQUESTED NOT TO BE TURNED. DENIES NEED FOR JESUS ALBERTO CARE. CALL LIGHT IN REACH.
--- NOTE | 2017-03-14 04:10 | NUR ---
LIPIDS COMPLETED. PICC LINE FLUSHED. TPN CONTINUED PER ORDER. PATIENT DENIED PRN MORPHINE AT THIS TIME, DENIES PAIN, DOES NOT WANT TO BE MOVED. PATIENT STATES SHE FEELS WARM. COOL WASH CLOTH APPLIED TO FOREHEAD. ROOM TEMP TURNED DOWN. SHEET REMOVED. PATIENT STATES SHE IS MORE COMFORTABLE. MOUTH SWABS PROVIDED, PATIENT PERFORMED ORAL CARE. CHAP STICK APPLIED. CALL LIGHT IN REACH. PULSE OX, 02 94% ON 5L NC. RR 36 AND SHALLOW.
--- NOTE | 2017-03-14 04:32 | NUR ---
PATIENT RESTED WELL THROUGHOUT SHIFT. AAOX2. PULSE OX, O2 5L NC TO MAINTAIN O2 >90%. RR 28-36 AT REST. REAL. SCDA. HEEL PROTECTORS. TURN Q2HR. CLEAR LIQUIDS MONITOR FOR ASPIRATION. TELE #8, HR IRREGULAR 78-94. GLUCOSE CHECKS. URINE OUTPUT QS. TPN INFUSING IN PICC LINE. FAMILY AT BEDSIDE. PRN MORPHINE X2 FOR SOB.
--- NOTE | 2017-03-14 06:10 | NUR ---
LABS DRAWN FROM PICC. TPN PAUSED FOR 10MINS. FLUSHED 10ML. WASTE 10ML. SENT TO LAB. NEW CLAVE APPLIED. 20ML FLUSH. PATIENT DENIED NEEDS AT THIS TIME. DOES NOT WANT TO BE REPOSITIONED. FAMILY IN ROOM. IV ABX STARTED PER ORDERS. TPN RESUMED PER ORDERS. CALL LIGHT IN REACH.
--- NOTE | 2017-03-14 06:57 | NUR ---
PATIENT AGREED TO BE REPOSITIONED. JESUS ALBERTO CARE PERFORMED. PATIENT HAS FREQUENT LOOSE STOOL. BARRIER CREAM APPLIED. REAL CARE PERFORMED. PATIENT REQUESTED PRN MORPHINE, WHICH WAS GIVEN.
--- NOTE | 2017-03-14 12:33 | NUR ---
I helped administer Flagyl at 1200 with meera. Instead of having pt swollow the medication whole we crushed it up and put it in a bite of apple sauce to help it go down easier. After that I helped two CNAs change the patients bedding, patient gown, diaper, finger probe becuase we felt it wasnt pickign up accurate oxygen levels. I also helped give her a full bed bath. While we were moving the patient while changing the bedding I looked at the patients backside and noticed nothing unusual. We reposition the patient so she was sitting further up in her bed. She had her SCDs on and heel protectors on. Then I gave the patient her eye drops with Meera. When I left the patient she was warm, comfortable, in no pain, side rails were up, and had the call light in reach.
--- NOTE | 2017-03-14 12:39 | NUR ---
PATIENT GRUNTING WITH EYES CLOSED, APPEARS TO BE GRIMACING. WHEN AWOKEN WITH STIMULI PATIENT RESPONDS. ASKED PATIENT IF HAVING PAIN, STATED " I AM, MAYBE SOME MORPHINE WOULD HELP". PATIENT WAS JUST REPOSITIONED AND HAD BED BATH. ADMINISTERING 2MG IV MORPHINE.
--- NOTE | 2017-03-14 15:30 | NUR ---
REPOSITIONED PATIENT IN BED, DISCUSSED CARE WITH FAMILY. PATIENT DENIES NEED FOR MORPHINE AT THIS TIME, NOW APPEARS MORE COMFORTABLE. APPEARS TO BE TALKING IN HER SLEEP, MUMBLING. FAMILY AT BEDSIDE. DR. LAU NOTIFIED FAMILY WOULD LIKE TO SPEAK WITH HIM.
--- NOTE | 2017-03-14 15:48 | NUR ---
PATIENT'S DAUGHTER BRI, TOLD PHYSICAL THERAPY "NO MORE PHYISCAL THERAPY, SHE IS NOT GONNA DO IT ANYMORE".
--- NOTE | 2017-04-05 07:48 | OR ---
[facility] [address] [place], [place] [address] Signed DATE OF PROCEDURE: 03/05/17 PREOPERATIVE DIAGNOSES Hematochezia. Atrial fibrillation with rapid ventricular response. Epigastric pain. POSTOPERATIVE DIAGNOSES No lesion on esophagus, stomach, or duodenum to account for bleeding. No evidence of blood. PROCEDURE PERFORMED: Esophagogastroduodenoscopy. SURGEON: Reina Quevedo MD. ANESTHESIA Intravenous sedation with Propofol infusion (Yuliana Wahley CRNA). INDICATION This 86-year-old white woman is admitted by Dr. Norwood on March 02, 2017 with left lower lobe pneumonia, atrial fibrillation (paroxysmal) with rapid ventricular response. He is been treating her for the past few days and yesterday she developed a maroon type stool. She has had gastrointestinal bleeding in the past when on Eliquis several months ago at which time, she underwent upper endoscopy by Dr. Peres as well as colonoscopy. The only finding relevant to possible bleeding were diverticula. Her maroon stool today is notable to not be associated with hematemesis. She is admitted to undergo upper endoscopy and the possibility she has developed a peptic source of her problem though the bleeding may well be related to diverticular changes this had been documented in the past. The risks of bleeding, infection, perforation, so forth were reviewed with her and her . She understands those risks. Additionally, the patient is still on a Diltiazem drip to maintain a heart rate of 85, and a blood pressure of 124 systolic. Those factors clearly justify sedation by Propofol infusional technique by the tile and mottle supervisor. FINDINGS There is no lesion to account for bleeding and there was no sign of blood within the gastrointestinal tract examined. Esophagus was normal. There was a small hiatal hernia. The stomach was normal. There was no sign of ulceration, neoplasm, or inflammation. The pylorus and duodenum were normal as well. She did have some bilious fluid within this stomach much of it which was suctioned free. No biopsies were obtained. Electronically Signed By: REINA QUEVEDO MD 04/05/17 0748 PATIENT NAME: JACK PATEL OPERATIVE REPORT DATE OF : [birth year] PHYSICIAN: REINA QUEVEDO MD REPORT #: [id number] REPORT IS CONFIDENTIAL AND NOT TO BE RELEASED WITHOUT AUTHORIZATION [facility] [address] [place], [place] [address] Signed DESCRIPTION OF PROCEDURE The patient was brought to the endoscopy suite and placed in lateral decubitus position. Given intravenous sedation with full cardiopulmonary monitoring by the tile and mottle supervisor. Propofol was used. A bite block was placed. After satisfactory sedation an Olympus video upper endoscope was passed in the hypopharynx. The esophagus was examined throughout its length and it was normal. The scope was passed to the stomach where a fair amount of liquid bilious fluid was noted. This was suctioned free. There was no sign of blood or clots or inflammatory change or edema. The pylorus was normal. Scope was passed through into the normal-appearing duodenal. There was no lesion there and no blood, no clot, no other abnormalities. Scope was withdrawn to the stomach. Examination of the antrum showed no ulcerations, more proximal stomach was suctioned free, more fully and retroflexed view undertaken. A small hiatal hernia was noted, but no associated Oscar ulcer or other problem. The scope was withdrawn to the distal esophagus, which was normal. No evidence of Curry's epithelium. Withdrawal of scope showed no other findings. The patient was then taken to recovery room in good condition after awakening from anesthesia in good condition. CONCLUDING DIAGNOSIS No upper gastrointestinal source of blood per rectum. PLAN I would assume this represents a diverticular bleed and has stopped already. She will return to the intensive care unit for further management including Diltiazem drip and monitoring. If further evidence of bleeding is noted, she may require colonoscopy, but only after a reason able bowel prep. MD JUAN Mann/Ibis /[id number] cc: Electronically Signed By: REINA QUEVEDO MD 04/05/17 0748 PATIENT NAME: JACK PATEL OPERATIVE REPORT DATE OF : [birth year] PHYSICIAN: REINA QUEVEDO MD REPORT #: [id number] REPORT IS CONFIDENTIAL AND NOT TO BE RELEASED WITHOUT AUTHORIZATION [address] [address] Signed DO Andres Hermosillo MD Electronically Signed By: REINA QUEVEDO MD 04/05/17 0748 PATIENT NAME: JACK PATEL OPERATIVE REPORT DATE OF : [birth year] PHYSICIAN: REINA QUEVEDO MD REPORT #: [id number] REPORT IS CONFIDENTIAL AND NOT TO BE RELEASED WITHOUT AUTHORIZATION
--- NOTE | 2017-04-05 08:27 | CONS ---
[facility] [address] [place], [place] [address] Signed DATE OF CONSULTATION: 03/05/17 CONSULTING PHYSICIAN: Reina Quevedo M.D. REQUESTING PHYSICIAN: Dr. Norwood. PROBLEM Maroon-colored stools, concurrent atrial fibrillation with rapid ventricular response, on Diltiazem drip. HISTORY This 86-year-old white woman is admitted to the hospital on March 02, 2017, by Dr. Norwood with complaints of shortness of breath. She is known to have paroxysmal atrial fibrillation and was hospitalized in October of 2016 with a right lower lobe pneumonia and found to have atrial fibrillation and RVR at that time. Her hospitalization was complicated by gastrointestinal bleeding after initiation of Eliquis for stroke prophylaxis related to the atrial fibrillation. Her presentation on this occasion was shortness of breath, [id number] grade. Antibiotics were started empirically by her primary care provider for possible pneumonia. She was noted to have tachycardia, presented to the emergency room and evaluated by Dr. Cole and found to have atrial fibrillation with rapid ventricular response, not well responded to Metoprolol 50 mg p.o. On that basis, she was admitted. At admission by Dr. Norwood, she is considered to have heart failure with preserved ejection fraction and diastolic heart failure. BNP was elevated to 463. She was to continue on Aspirin 325 mg a day for stroke prophylaxis instead of absolute anticoagulation otherwise. Specifically not on Coumadin nor on thrombin inhibitor. She is known also to have [id number] aortic stenosis and Type 2 diabetes Mellitus. The patient was noted to have nausea, but no actual vomiting particularly. She had elevated temperature and clinical exam showing right greater than left crackles in the base of the lung. She was found to have left lower lobe pneumonia on chest x-ray, which was considered new. Creatinine was slightly elevated, having increased from 1.1 to 1.6. Her urine output has been adequate and stable. She was noted to have maroon stool overnight. The stool considered reddish to burgundy in color. She has had mid abdominal pain moderate and not particularly improved. She has had some vomiting today, but no findings of hematemesis proper. Lab studies today showed a creatinine of 1.28, improved from yesterday of 1.58. Liver enzymes normal. White count 13.5, hematocrit 28.9, platelet count is 211,000. Consultation is requested at this point for further evaluation and consideration of upper endoscopy. As special note, on the patient's previous hospitalization, she was evaluated by Electronically Signed By: REINA QUEVEDO MD 04/05/17 0827 PATIENT NAME: JACK PATEL CONSULTATION DATE OF : [birth year] PHYSICIAN: REINA QUEVEDO MD REPORT #: [id number] REPORT IS CONFIDENTIAL AND NOT TO BE RELEASED WITHOUT AUTHORIZATION [address] [address] Signed Ja and on October 30, 2016, underwent upper endoscopy and colonoscopy after bowel prep. A small hiatal hernia with streaky distal gastritis was noted. No evidence of ulceration. There were internal and external hemorrhoids and minimal sigmoid diverticulosis. REVIEW OF SYSTEMS The patient complains mostly of vague upper abdominal pain. She has had pain medication for this. She is accompanied by her who attends to her in her intensive care unit bed. PHYSICAL EXAMINATION VITAL SIGNS: Her pulse is well controlled at 86, blood pressure of 124 systolic. HEENT: Trachea is midline. She has no hoarseness. CHEST: No tachypnea at this time. A Diltiazem drip is infusing at this time. CARDIAC: Heart is irregularly irregular clinically and on monitors consists with atrial fibrillation. Heart rate currently 83. ABDOMEN: Quite obese and palpation reveals diffuse tenderness. No particular mass. This does not represent ascites. DIAGNOSTIC DATA She had an ultrasound noted on March 03, 2017, which was normal and a CT scan on March 03, 2017, also without sign of acute abnormality. Gallstones were noted without CT scan evidence of cholecystitis and small right pleural effusion is noted as well as diverticulosis of the sigmoid without sign of inflammation. Ultrasound was performed, showed no ascites, but did show gallstones without findings of acute cholecystitis proper. Chest x-ray performed on March 03 showed interval improvement of aeration of the lung bases and mild cardiomegaly. ASSESSMENT The patient had gastrointestinal bleeding from some source, most likely I suspect the upper abdomen. If an upper endoscopy is performed and is normal, then one might rightly attribute the bleeding to diverticular sources considering her prior colonoscopy only a few months ago. She is stable on a Diltiazem drip with her atrial fibrillation and rapid ventricular response and is not anticoagulated, specifically other than aspirin that she has been on. I discussed with the patient and her who attends to her, a plan for upper endoscopy this evening to assess for peptic ulcer or other source of gastrointestinal bleeding accounting for maroon stools. If such a lesion is identified, then intensive therapy for treatment would be beneficial and appropriate. The risks of upper endoscopy include but are not limited to, bleeding, infection, and anesthetic complications. Special care is noted regarding her aortic stenosis, which is considered severe as well as concurrent atrial fibrillation. Electronically Signed By: REINA QUEVEDO MD 04/05/17 0827 PATIENT NAME: JACK PATEL CONSULTATION DATE OF : [birth year] PHYSICIAN: REINA QUEVEDO MD REPORT #: [id number] REPORT IS CONFIDENTIAL AND NOT TO BE RELEASED WITHOUT AUTHORIZATION [address] [place], [place] [address] Signed MD JUAN Mann/Ibis /[id number] cc: MD Thony Pulido DO Electronically Signed By: REINA QUEVEDO MD 04/05/17 0827 PATIENT NAME: JACK PATEL CONSULTATION DATE OF : [birth year] PHYSICIAN: REINA QUEVEDO MD REPORT #: [id number] REPORT IS CONFIDENTIAL AND NOT TO BE RELEASED WITHOUT AUTHORIZATION
== END 2017-03-14 17:30 | disposition swing bed (61) | DRG 308 ==
LOC: ED 00:36 → CCU 00:38 → MS 00:38 → CCU 08:30 → MS 03-12 11:10
PROVIDERS: Surgery; ADMIT Internal Medicine
PROC: 0DJ08ZZ Inspection of Upper Intestinal Tract, Via Natural or Artificial Opening Endoscopic (ICD-10-PCS; principal; 2017-03-05 18:37)
PROC: 02HV33Z Insertion of Infusion Device into Superior Vena Cava, Percutaneous Approach (ICD-10-PCS; 2017-03-08)
DX: I48.0 Paroxysmal atrial fibrillation (principal); Z51.5 Encounter for palliative care; J18.9 Pneumonia, unspecified organism; I50.31 Acute diastolic (congestive) heart failure; K92.1 Melena; K56.699 Other intestinal obstruction unspecified as to partial versus complete obstruction; N17.9 Acute kidney failure, unspecified; K56.7 Ileus, unspecified; K92.2 Gastrointestinal hemorrhage, unspecified; I35.0 Nonrheumatic aortic (valve) stenosis; E11.9 Type 2 diabetes mellitus without complications; Z79.4 Long term (current) use of insulin; E78.5 Hyperlipidemia, unspecified; E79.0 Hyperuricemia without signs of inflammatory arthritis and tophaceous disease; G25.81 Restless legs syndrome; M54.9 Dorsalgia, unspecified; H40.9 Unspecified glaucoma; I27.20 Pulmonary hypertension, unspecified; Z86.73 Personal history of transient ischemic attack (TIA), and cerebral infarction without residual deficits; I11.0 Hypertensive heart disease with heart failure; K57.30 Diverticulosis of large intestine without perforation or abscess without bleeding
CPT/HCPCS: 00740; 36415; 36569; 51702; 51798; 71010; 74000; 74020; 74177; 76705; 80048; 80053; 80061; 80069; 80076; 81001; 82150; 82247; 82465; 82570; 83605; 83615; 83690; 83735; 83880; 84100; 84134; 84300; 84478; 84484; 84540; 84550; 85025; 85610; 85730; 86850; 86900; 86901; 86920; 87040; 87502; 92526; 92610; 93005; 93010; 94640; 94668; 94762; 97110; 97116; 97163; 97530; J0330; J0696; J1650; J1956; J2270; J2405; J2543; J2550; J2704; J2765; J3475; J3480; J7030; J7060; J7120; P9047; P9612; Q9967

== ENCOUNTER 2017-03-14 17:30 | Inpatient (IN) | payer MEDICARE ==
[~2017-03-14] VITALS: Ht 157.5 cm; Wt 78.1 kg
[~2017-03-14 17:30] MED LIST changes: +AMOXICILLIN500 MG PO; +ZITHROMAX250 MG PO
--- NOTE | 2017-03-14 18:00 | NUR ---
CARE CONFERENCE WITH FAMILY AT 1730, DAUGHTERS CAROLINE WERE THERE WITH DIANE RAE. DR. LAU TALKED WITH PATIENT WHO STATED " CONFUSED...SUFFERING...LEAVE ME ALONE" TO DR. LAU WHO DID AN ASSESMENT. FAMILY AND DR. LAU AND THIS NURSE AND COREMAKING SUPERVISOR THEN WENT TO SEPERATE ROOM TO DISCUSS POC. DR. LAU DISCUSSED PATIENT'S MEDICAL PRESENTATION AND EXPECTATION WITH HOW PATIENT WOULD RESPOND TO POC. FAMILY VERBALIZED UNDERSTANDING EXPRESSING WANTING THE PATIENT TO BE COMFORTABLE AND TO BE ABLE TO TRANSITION TO COMFORT CARE. DISCUSSED WHAT COMORT CARE MEANS, AND MEDICATIONS TO ASSIST WITH COMFORT. DR. LAU ADDRESSED ALL QUESTIONS AND CONCERNS.
--- NOTE | 2017-03-14 18:30 | NUR ---
PATIENT PICC LINE REMOVED, TPN DC'D. OXYGEN TITRATED TO 2 LITERS. ADMINISTERED 10 MG SL MORPHINE AND 0.5 MG ATIVAN SL. PATIENT APPEARED TO TOLERATED WELL. RESPONDING TO QUESTIONS, REQUESTED SOME GREGOR LEWISBERT. TOOK 4 BITES, SWALLOWED WELL. PATIENT STATED " TOO HOT" REMOVED EXTRA BLANKETS AND PROVIDED COLD CLOTH. PATIENT DRY AT THIS TIME, SCANT AMOUNT OF URINE IN REAL BAG. PATIENT'S FAMILY AT BEDSIDE. EXPLAINING CARE AND ANSWERING QUESTIONS AND CONCERNS.
--- NOTE | 2017-03-14 19:20 | NUR ---
SHIFT REPORT RECIEVED. PATIENT RESTING IN BED. APPEARS COMFORTABLE. DRANK SOME WATER.
--- NOTE | 2017-03-14 20:06 | NUR ---
LAKSHMI PLEITEZ REQUESTED BY THE PATIENTS FAMILY. MORPHINE ADMINISTERED PER ORDERS. PATIENT IS MOANING, CRYING OUT, RR 36. PATIENT RESPONDED BY SAYING "OKAY" WHEN RN ASKED IF SHE WOULD LIKE THE MORPHINE. BUT SHE DID NOT OPEN HER EYES. FAMILY IS AT BEDSIDE. DENIES FURTHER NEEDS AT THIS TIME.
--- NOTE | 2017-03-14 20:08 | NUR ---
PATIENT IS MOANING AND APPEARS UNCOMFORTABLE. PRN MORPHINE ADMINISTERED. FAMILY AT BEDSIDE.
--- NOTE | 2017-03-14 21:41 | NUR ---
PATIENT MOANING HAS INCREASED. PATIENT FAMILY REQUEST PRN MORPHINE WHICH WAS GIVEN TO HER. PATIENT DID NOT RESPOND TO HER NAME OR ANY QUESTION. FAMILY AT BEDSIDE.
--- NOTE | 2017-03-14 22:35 | NUR ---
PATIENT GIVEN PRN ATIVAN PER FAMILY REQUEST. FAMILY DENIES ANY FURTHER NEEDS. CALL LIGHT IN REACH.
--- NOTE | 2017-03-15 00:10 | NUR ---
PATIENTS FAMILY REQUESTED PRN MORPIHINE BE GIVEN PATIENT IS MOANING LOUDLY AND THE FAMILY EXPRESSES CONDERN WITH COMFORT. PATIENT GIVEN PRN MORPHINE PER ORDER. ORAL CARE PERFORMED. FAMILY DENIES ANY FURTHER NEEDS
--- NOTE | 2017-03-15 00:45 | NUR ---
PATIENT GIVEN PRN ATIVAN PER FAMILY REQUEST FOR INCREASED MOANING AND DISCOMFORT OF PATIENT. ORAL CARE PERFORMED
--- NOTE | 2017-03-15 01:16 | NUR ---
REPOSTIONED PATIENT PER FAMILY REQUEST. FAMILY DENIES THE NEED FOR ANY MEDICATION FOR PATIENT AT THIS TIME.
--- NOTE | 2017-03-15 01:59 | NUR ---
PATIENT GIVEN PRN ATIVAN PER FAMILY REQUEST. PATIENT IS GROANING LOUDLY AND RR IS 28. NO FURTHER REQUESTS BY THE FAMILY.
--- NOTE | 2017-03-15 03:03 | NUR ---
PATIENT GIVEN PRN ATIVAN PER FAMILY REQUEST. PATIENT GIVEN PRN ATIVAN FOR SOUNDS OF GURGLING IN HER THROAT. NO FURTHER NEEDS AT THIS TIME.
--- NOTE | 2017-03-15 04:03 | NUR ---
PATIENT GIVEN PRN ATIVAN PER FAMILYS REQUEST. NO FURTHER NEEDS AT THIS TIME.
--- NOTE | 2017-03-15 04:23 | NUR ---
PATIENT HAD NO LUNG OR HEARTS SOUNDS AT 0410. NOTIFIED DR LAU. DR LAU CAME TO THE FLOOR AT 0420 AND PRONOUNCED PATIENT.
--- NOTE | 2017-03-15 05:25 | NUR ---
PASTOR MOSCOSO IS IN THE ROOM WITH FAMILY. FAMILY IS WAITING FOR ALL FAMILY TO COME TO THE HOSPITAL BEFORE THE PATIENT LEAVES FOR THE HOME. DONOR LINE CALLED.
--- NOTE | 2017-03-18 07:01 | NUR ---
I WAS NOTIFIED BY MED/SURG STAFF THAT PT JACK PATEL HAD PASSED. I ARRIVED TO FIND HER ,DAUGHTERS AND GRANDSONS PRESENT. DISCUSSED WITH FAMILY WHAT THEIR FINAL BURIAL WISHES ARE. AFTER SOME DISCUSSION, WAS CHOSEN WITH BURIAL TO BE IN [facility] WITH OTHER FAMILY. A SMALL PASSAGE QUILT HAD BEEN PLACED EARLIER ON PT. HAD PRAYER WITH THEM, AND THEY DECIDED TO GO HAVE BREAKFAST AFTER THEY ALL SAID THEIR GOODBYE'S. FAMILY CHOSE TO NOT BE PRESENT WHEN ARRIVED, BUT WOULD RETURN LATER TO COLLECT ALL THEIR BELONGINGS. I CONTACTED , THEY ARRIVED TO RETRIEVE THE BODY. GOD BLESS THEM
== END 2017-03-15 04:10 | DRG 194 ==
LOC: MS 17:30
PROVIDERS: ADMIT Internal Medicine
PROC: 5A12012 Performance of Cardiac Output, Single, Manual (ICD-10-PCS; principal; 2017-03-15)
DX: J18.9 Pneumonia, unspecified organism (principal); K92.2 Gastrointestinal hemorrhage, unspecified; N17.9 Acute kidney failure, unspecified; E44.1 Mild protein-calorie malnutrition; I48.0 Paroxysmal atrial fibrillation; I11.0 Hypertensive heart disease with heart failure; R53.81 Other malaise; Z51.5 Encounter for palliative care; I35.0 Nonrheumatic aortic (valve) stenosis; E11.9 Type 2 diabetes mellitus without complications; Z79.4 Long term (current) use of insulin; E78.5 Hyperlipidemia, unspecified; E79.0 Hyperuricemia without signs of inflammatory arthritis and tophaceous disease; G25.81 Restless legs syndrome; H40.9 Unspecified glaucoma; I50.9 Heart failure, unspecified